=== PATIENT | female | born 1955 | race Caucasian/White ===

== ENCOUNTER 2016-07-24 11:30 | Inpatient (IN) | payer OTHER ==
[~2016-07-24] VITALS: Ht 167.6 cm; Wt 83.5 kg
--- NOTE | ~2016-07-24 | PR ---
[place], [place] PROGRESS NOTE NAME: CHERI COFFEY [facility] #: [id number] UNIT #: [id number] ROOM: 518 DOCTOR: JESSENIA PARRA MD BIRTHDATE: [birth year] DOS: 07/26/2016 SUBJECTIVE: The patient was seen in the Cardiology Department just prior to her stress test. She stated that she had no further problems overnight. She denied any chest pain. Her blood count remained stable. Cardiac biomarkers were unremarkable. PHYSICAL EXAMINATION: VITAL SIGNS: Her pulse was 79 and regular, blood pressure 138/84. NECK: Supple. She had no jugular distention. Carotids are full. LUNGS: Respirations were unlabored. Her chest was clear. HEART: Had a regular rhythm with an S4 gallop. ABDOMEN: Benign. EXTREMITIES: Showed no edema. We attempted to do an exercise myocardial perfusion study. The patient walked about a minute before she had to stop because of severe fatigue and lightheadedness. She stated that she felt hot and dizzy. She had a rapid cardio acceleration, but no evidence for bradycardia. Blood pressure was stable. We are therefore changing her stress test to a pharmacologic examination. IMPRESSION: 1. Near syncope. 2. Orthostatic hypotension. 3. Acute renal insufficiency. 4. Gastroesophageal reflux disease. PLAN: We will further her evaluation with an echocardiogram and myocardial perfusion study utilizing regadenoson. We thank the hospitalist physicians for asking our advice regarding her care. JESSENIA PARRA MD CM:PNTRANS [id number] JESSENIA PARRA MD 07/27/16 0457 interface
--- NOTE | ~2016-07-24 | ST ---
[place], [place] EXERCISE STRESS TEST REPORT [id number] UN[facility] #: [id number] ROOM: 518 DOCTOR: JESSENIA PARRA MD BIRTHDATE: [birth year] DOS: 07/26/2016 PHARMACOLOGIC STRESS TEST Study was done and is being dictated on 07/26/2016. INDICATIONS: Near syncope and precordial chest pain. PROCEDURE: The patient was started on a Nigel protocol stress test. Within a minute of walking on the treadmill, she began to feel lightheaded and hot. She had a rapid cardio accelerator response, but no diagnostic ST or T-wave changes. Because of the brevity of the study, I was concerned that it may not be an accurate reflection of her cardiovascular status and therefore, I changed the examination to a pharmacologic stress test. The patient was given a rapid infusion of regadenoson 0.4 mg intravenously followed by a saline flush. She felt some slight nausea, but had no vomiting. Her heart rate of 79 at rest aileen to 142 with the infusion. The blood pressure 138/84 fell to 118/78. No diagnostic ST or T-wave changes were seen. Forty seconds after the infusion of regadenoson, she was given radionuclide intravenously. IMPRESSION: 1. Poor exercise capacity, but without diagnostic electrocardiographic changes. 2. Well tolerated infusion of regadenoson. 3. Radionuclide injected. Please see the separate myocardial perfusion report for further details of the patient's stress test results. JESSENIA PARRA MD CM:STRESS:EXERCISE STRESS TEST REPORT 1323 [id number] JESSENIA PARRA MD
[~2016-07-24 11:30] MED LIST: ACETAMINOPHEN325 MG PO; ALBUTEROL0.09 MG/A2 IH; BUSPAR10 MG PO; CRESTOR20 MG PO; DICYCLOMINE10 MG PO; HYDROXYZINE PAM25 MG PO; LOPRESSOR25 MG PO; OMEPRAZOLE20 MG PO; VENLAFAXINE150 MG PO
[2016-07-24 11:48] VITALS: BP 119/82
[2016-07-24 12:11] VITALS: BP 116/68
[2016-07-24 12:50] LABS: BASO # 0.1 10*3/uL (0.0-0.1); BASO % 0.7 % (0.0-1.0); EOS # 0.1 10*3/uL (0.0-0.4); EOS % 1.1 % (1.0-4.0); HEMATOCRIT 39.8 % (37.0-47.0); HEMOGLOBIN 13.3 g/dl (12.0-16.0); LYMPH # 2.3 10*3/uL (1.3-4.4); LYMPH % 24.1 % (27.0-41.0); MEAN CELL VOLUME 92.1 fl (81.0-99.0); MEAN CORPUSCULAR HGB 30.8 pg (27.0-31.0); MEAN CORPUSCULAR HGB CONC 33.4 g/dl (33.0-37.0); MEAN PLATELET VOLUME 9.8 fl (9.6-12.3); MONO # 0.8 10*3/uL (0.1-1.0); MONO % 8.7 % (3.0-9.0); NEUT # 6.2 10*3/uL (2.3-7.9); NEUT % 65.2 % (47.0-73.0); PLATELET COUNT AUTOMATED 261 10*3/uL (130-400); RED BLOOD COUNT 4.32 10*6/uL (4.10-5.10); RED CELL DISTRI WIDTH 13.2 % (0-14.5); WHITE BLOOD COUNT 9.6 10*3/uL (4.8-10.8)
[2016-07-24 12:58] LABS: PROTHROMBIN TIME 10.1 SECONDS (9.0-12.4)
[2016-07-24 13:14] LABS: ALBUMIN 3.5 gm/dl (3.1-4.5); ALKALINE PHOSPHATASE 97 U/L (45-117); BILIRUBIN, DIRECT < 0.1 mg/dL (0.0-0.2); BILIRUBIN, TOTAL 0.4 mg/dl (0.2-1.0); BUN 20 mg/dl (7-24); CARBON DIOXIDE 30 mmol/L (21-32); CHLORIDE 102 mmol/L (98-107); EST GLOM FILT AFRICAN AMERICAN 48 ml/min; GLUCOSE 104 mg/dL (65-99); MAGNESIUM 1.4 mg/dL (1.5-2.1); POTASSIUM 5.2 mmol/L (3.5-5.1); SGOT/AST 17 IU/L (3-35); SGPT/ALT 30 U/L (12-78); SODIUM 138 mmol/L (136-145); TOTAL PROTEIN 6.8 gm/dL (6.4-8.2)
[2016-07-24 13:15] LABS: TROPONIN I < 0.015 ng/ml (<0.5)
[2016-07-24 14:23] LABS: BILIRUBIN NEGATIVE (NEGATIVE); BLOOD NEGATIVE (NEGATIVE); CLARITY CLEAR (CLEAR); COLOR YELLOW (YELLOW); GLUCOSE NEGATIVE (NEGATIVE); KETONE TRACE (NEGATIVE); LEUKO ESTERASE NEGATIVE (NEGATIVE); NITRITE NEGATIVE (NEGATIVE); PROTEIN NEGATIVE (NEGATIVE); SPECIFIC GRAVITY 1.015 (1.005-1.030)
[2016-07-24 14:42] LABS: URINE REFLEX COMMENT NO (NO)
[2016-07-24 15:43] VITALS: BP 135/74
[2016-07-24 15:58] VITALS: BP 78/52
[2016-07-24 16:55] VITALS: BP 120/78
[2016-07-24 18:43] LABS: CKMB 2.5 ng/ml (0.5-3.6); CPK 207 U/L (26-192)
[2016-07-24 18:44] LABS: TROPONIN I < 0.015 ng/ml (<0.5)
[2016-07-24 20:00] VITALS: BP 117/61
[2016-07-24] MEDS ORDERED: VENLAFAXINE HYD75 M2 PO ×2 (20:17)
[2016-07-25] VITALS: BP 133/74
[2016-07-25 00:25] LABS: CKMB 2.7 ng/ml (0.5-3.6); CPK 206 U/L (26-192); TROPONIN I < 0.015 ng/ml (<0.5)
[2016-07-25 06:26] LABS: BASO # 0.1 10*3/uL (0.0-0.1); EOS # 0.1 10*3/uL (0.0-0.4); EOS % 2.2 % (1.0-4.0); HEMATOCRIT 38.3 % (37.0-47.0); HEMOGLOBIN 12.8 g/dl (12.0-16.0); LYMPH # 1.9 10*3/uL (1.3-4.4); LYMPH % 31.5 % (27.0-41.0); MEAN CELL VOLUME 91.4 fl (81.0-99.0); MEAN CORPUSCULAR HGB 30.5 pg (27.0-31.0); MEAN CORPUSCULAR HGB CONC 33.4 g/dl (33.0-37.0); MEAN PLATELET VOLUME 9.7 fl (9.6-12.3); MONO # 0.5 10*3/uL (0.1-1.0); MONO % 8.8 % (3.0-9.0); NEUT # 3.3 10*3/uL (2.3-7.9); NEUT % 56.2 % (47.0-73.0); PLATELET COUNT AUTOMATED 238 10*3/uL (130-400); RED BLOOD COUNT 4.19 10*6/uL (4.10-5.10); RED CELL DISTRI WIDTH 13.2 % (0-14.5); WHITE BLOOD COUNT 5.9 10*3/uL (4.8-10.8)
[2016-07-25 06:35] LABS: CKMB 2.5 ng/ml (0.5-3.6); CPK 183 U/L (26-192)
[2016-07-25 06:38] LABS: TROPONIN I < 0.015 ng/ml (<0.5)
[2016-07-25 07:00] LABS: HEMOGLOBIN A1c 5.8 % (4.8-5.6)
[2016-07-25 07:04] LABS: ALBUMIN 3.1 gm/dl (3.1-4.5); ALKALINE PHOSPHATASE 83 U/L (45-117); BILIRUBIN, TOTAL 0.3 mg/dl (0.2-1.0); BUN 15 mg/dl (7-24); CARBON DIOXIDE 29 mmol/L (21-32); CHLORIDE 108 mmol/L (98-107); CHOLESTEROL 168 mg/dL (<200); EST GLOM FILT AFRICAN AMERICAN > 60 ml/min; GLUCOSE 91 mg/dL (65-99); HDL CHOLESTEROL 51 mg/dl (40-60); LDL CHOLESTEROL 98 mg/dL (9-159); MAGNESIUM 1.9 mg/dL (1.5-2.1); PHOSPHOROUS 2.8 mg/dL (2.5-4.9); SGOT/AST 17 IU/L (3-35); SGPT/ALT 25 U/L (12-78); SODIUM 142 mmol/L (136-145); TRIGLYCERIDES 93 mg/dl (<150); VLDL CHOLESTEROL 19 mg/dL (6-40)
[2016-07-25 07:18] LABS: INTERNATIONAL NORM RATIO 0.9 (2.0-3.5); PROTHROMBIN TIME 9.9 SECONDS (9.0-12.4)
[2016-07-25 07:45] LABS: FOLIC ACID 11.31 ng/mL (>5.38)
[2016-07-25 08:00] VITALS: BP 140/78
[2016-07-25 12:00] VITALS: BP 122/77
[2016-07-25 16:00] VITALS: BP 128/69
[2016-07-25 20:00] VITALS: BP 113/75
[2016-07-26] VITALS: BP 146/75
[2016-07-26 08:00] VITALS: BP 132/80
[2016-07-26 08:01] LABS: BUN 12 mg/dl (7-24); CARBON DIOXIDE 28 mmol/L (21-32); CHLORIDE 106 mmol/L (98-107); EST GLOM FILT AFRICAN AMERICAN > 60 ml/min; GLUCOSE 99 mg/dL (65-99); POTASSIUM 3.6 mmol/L (3.5-5.1); SODIUM 142 mmol/L (136-145)
[2016-07-26 12:00] VITALS: BP 134/80
[2016-07-26 16:00] VITALS: BP 130/74
[2016-09-18] MEDS ORDERED: PRILOSEC20 M1 PO (01:32)
== END 2016-07-26 19:27 | disposition home or self-care (01) | DRG 312 ==
LOC: ED 11:30 → 5E 15:36 → EDHOLD 15:36 → 5E 15:39
PROVIDERS: Emergency Medicine; Hospitalist; Internal Medicine
DX: I95.1 Orthostatic hypotension (principal); N17.0 Acute kidney failure with tubular necrosis; E83.42 Hypomagnesemia; I10 Essential (primary) hypertension; E87.5 Hyperkalemia; F17.210 Nicotine dependence, cigarettes, uncomplicated; K21.9 Gastro-esophageal reflux disease without esophagitis; K58.1 Irritable bowel syndrome with constipation; F41.9 Anxiety disorder, unspecified; F32.9 Major depressive disorder, single episode, unspecified; Z71.6 Tobacco abuse counseling; Z88.8 Allergy status to other drugs, medicaments and biological substances; Z79.899 Other long term (current) drug therapy; Z90.710 Acquired absence of both cervix and uterus; Z82.49 Family history of ischemic heart disease and other diseases of the circulatory system; Z82.3 Family history of stroke

== ENCOUNTER 2016-09-10 12:46 | Inpatient (IN) | payer OTHER ==
[2016-09-10] VITALS (8 sets, daily range): BP systolic 105–148; BP diastolic 61–100
[~2016-09-10] VITALS: Ht 167.6 cm; Wt 86.6 kg
--- NOTE | ~2016-09-10 | WRIGHTHP ---
[place], [place] PATIENT HISTORY AND PHYSICAL EXAM NAME: CHERI COFFEY [facility] #: [id number] UNIT #: [id number] ROOM: 529 DOCTOR: SPENCER BUTTERFIELD DO BIRTHDATE: [birth year] DOS: 09/10/2016 PRIMARY CARE PHYSICIAN: Kitty Oleary NP HISTORY OF PRESENT ILLNESS: The patient was seen and evaluated with the resident on 09/10/2016. Please see the resident's note for further details. ASSESSMENT: 1. Acute chronic obstructive pulmonary disease exacerbation. 2. Acute gastroenteritis. 3. Dizziness. This has been a chronic issue and is unchanged. 4. Hypertension. 5. Hyperlipidemia. 6. Gastroesophageal reflux disease. 7. Tobacco abuse. 8. History of irritable bowel syndrome. 9. Anxiety. 10. Depression. 11. History of cervical cancer. 12. Negative cardiac stress test in 07/2016. 13. Echocardiogram in 07/2016 measured a normal ejection fraction. PLAN: Continue supportive care, continue IV fluids for hydration. Steroids and aerosol treatments will be ordered for the COPD. SPENCER BUTTERFIELD DO CM:HISPHYS:PATIENT HISTORY AND PHYSICAL EXAMINATION 1724 1800 SPENCER BUTTERFIELD DO 09/10/16 1800 interface
[~2016-09-10 12:46] MED LIST changes: +VENLAFAXINE HYD75 M2 PO
[2016-09-10] MEDS ORDERED: NEURONTIN300 MG PO (13:07)
[2016-09-10] MEDS ORDERED: LISINOPRIL10 M1 PO (13:07)
[2016-09-10] MEDS ORDERED: ASPIRIN ADULT L81 M1 PO (13:07)
[2016-09-10] MEDS ORDERED: HALDOL5 MG PO (13:08)
[2016-09-10] MEDS ORDERED: LIPITOR80 MG PO (13:08)
[2016-09-10 13:18] LABS: BASO # 0.1 10*3/uL (0.0-0.1); BASO % 0.8 % (0.0-1.0); EOS # 0.1 10*3/uL (0.0-0.4); EOS % 1.1 % (1.0-4.0); HEMATOCRIT 38.2 % (37.0-47.0); HEMOGLOBIN 12.6 g/dl (12.0-16.0); LYMPH # 1.7 10*3/uL (1.3-4.4); LYMPH % 15.8 % (27.0-41.0); MEAN CELL VOLUME 92.7 fl (81.0-99.0); MEAN CORPUSCULAR HGB 30.6 pg (27.0-31.0); MEAN PLATELET VOLUME 9.3 fl (9.6-12.3); MONO # 0.9 10*3/uL (0.1-1.0); MONO % 8.4 % (3.0-9.0); NEUT # 7.9 10*3/uL (2.3-7.9); NEUT % 73.5 % (47.0-73.0); PLATELET COUNT AUTOMATED 357 10*3/uL (130-400); RED BLOOD COUNT 4.12 10*6/uL (4.10-5.10); RED CELL DISTRI WIDTH 13.9 % (0-14.5); WHITE BLOOD COUNT 10.8 10*3/uL (4.8-10.8)
[2016-09-10 13:31] LABS: ALBUMIN 3.4 gm/dl (3.1-4.5); ALKALINE PHOSPHATASE 72 U/L (45-117); BILIRUBIN, TOTAL 0.2 mg/dl (0.2-1.0); BUN 6 mg/dl (7-24); CARBON DIOXIDE 26 mmol/L (21-32); CHLORIDE 105 mmol/L (98-107); EST GLOM FILT AFRICAN AMERICAN > 60 ml/min; GLUCOSE 104 mg/dL (65-99); POTASSIUM 4.2 mmol/L (3.5-5.1); SGOT/AST 22 IU/L (3-35); SGPT/ALT 42 U/L (12-78); SODIUM 141 mmol/L (136-145); TOTAL PROTEIN 6.9 gm/dL (6.4-8.2)
[2016-09-10 15:43] LABS: BILIRUBIN NEGATIVE (NEGATIVE); BLOOD NEGATIVE (NEGATIVE); CLARITY CLEAR (CLEAR); COLOR YELLOW (YELLOW); GLUCOSE NEGATIVE (NEGATIVE); KETONE NEGATIVE (NEGATIVE); LEUKO ESTERASE NEGATIVE (NEGATIVE); NITRITE NEGATIVE (NEGATIVE); PROTEIN NEGATIVE (NEGATIVE); SPECIFIC GRAVITY <= 1.005 (1.005-1.030); UROBILINOGEN 0.2 E.U./dl (0.2-1.0)
[2016-09-10 15:57] LABS: RBC 0-2 rbc/hpf (0-2); URINE REFLEX COMMENT NO (NO); WBC 0-2 wbc/hpf (0-5)
[2016-09-10] MEDS ORDERED: HYDR12.5C PO (16:25)
[2016-09-10] MEDS ORDERED: LAMICTAL25 MG PO (16:29)
[2016-09-10] MEDS ORDERED: Nizoral 2%15 GM T (16:30)
[2016-09-10 18:29] LABS: CPK 200 U/L (26-192)
[2016-09-10 18:37] LABS: CKMB 6.6 ng/ml (0.5-3.6); TROPONIN I < 0.015 ng/ml (<0.045)
[2016-09-11] VITALS: BP 124/72
[2016-09-11 00:41] LABS: CPK 197 U/L (26-192)
[2016-09-11 00:43] LABS: CKMB 6.1 ng/ml (0.5-3.6); TROPONIN I < 0.015 ng/ml (<0.045)
[2016-09-11 06:04] LABS: BASO % 0.3 % (0.0-1.0); HEMATOCRIT 39.2 % (37.0-47.0); HEMOGLOBIN 12.6 g/dl (12.0-16.0); LYMPH # 0.8 10*3/uL (1.3-4.4); MEAN CORPUSCULAR HGB 30.2 pg (27.0-31.0); MEAN CORPUSCULAR HGB CONC 32.1 g/dl (33.0-37.0); MEAN PLATELET VOLUME 9.4 fl (9.6-12.3); MONO # 0.2 10*3/uL (0.1-1.0); MONO % 2.1 % (3.0-9.0); NEUT # 6.7 10*3/uL (2.3-7.9); NEUT % 87.2 % (47.0-73.0); PLATELET COUNT AUTOMATED 377 10*3/uL (130-400); RED BLOOD COUNT 4.17 10*6/uL (4.10-5.10); RED CELL DISTRI WIDTH 14.2 % (0-14.5); WHITE BLOOD COUNT 7.7 10*3/uL (4.8-10.8)
[2016-09-11 06:07] LABS: CPK 180 U/L (26-192)
[2016-09-11 06:17] LABS: CKMB 5.8 ng/ml (0.5-3.6); TROPONIN I < 0.015 ng/ml (<0.045)
[2016-09-11 06:22] LABS: ALBUMIN 3.2 gm/dl (3.1-4.5); ALKALINE PHOSPHATASE 69 U/L (45-117); BILIRUBIN, TOTAL 0.3 mg/dl (0.2-1.0); BUN 8 mg/dl (7-24); CARBON DIOXIDE 25 mmol/L (21-32); CHLORIDE 103 mmol/L (98-107); CHOLESTEROL 198 mg/dL (<200); EST GLOM FILT AFRICAN AMERICAN > 60 ml/min; FREE T4 0.74 ng/dl (0.76-1.46); GLUCOSE 138 mg/dL (65-99); HDL CHOLESTEROL 72 mg/dl (40-60); LDL CHOLESTEROL 114 mg/dL (9-159); MAGNESIUM 1.4 mg/dL (1.5-2.1); SGOT/AST 17 IU/L (3-35); SGPT/ALT 39 U/L (12-78); SODIUM 140 mmol/L (136-145); TOTAL PROTEIN 6.7 gm/dL (6.4-8.2); TRIGLYCERIDES 60 mg/dl (<150); VLDL CHOLESTEROL 12 mg/dL (6-40)
[2016-09-11 06:23] LABS: PROTHROMBIN TIME 10.6 SECONDS (9.0-12.4)
[2016-09-11 07:11] LABS: FOLIC ACID 10.26 ng/mL (>5.38); VITAMIN D, 25-HYDROXY 20.6 ng/mL (30-100)
[2016-09-11 08:00] VITALS: BP 124/77
[2016-09-11 08:04] LABS: HEMOGLOBIN A1c 5.8 % (4.8-5.6)
[2016-09-11] MEDS ORDERED: ZITHROMAX250 MG PO (11:36)
[2016-09-11] MEDS ORDERED: PREDNISONE10 MG PO (11:36)
[2016-09-11] MEDS ORDERED: ZOFRAN ODT4 MG SL (11:39)
[2016-09-11 12:00] VITALS: BP 103/65
[2016-09-18] MEDS ORDERED: PRILOSEC20 M1 PO (01:32)
== END 2016-09-11 12:30 | disposition home or self-care (01) | DRG 391 ==
LOC: ED 12:46 → EDHOLD 15:32 → 5E 15:32
PROVIDERS: Hospitalist; Registered Nurse
DX: K52.9 Noninfective gastroenteritis and colitis, unspecified (principal); J96.00 Acute respiratory failure, unspecified whether with hypoxia or hypercapnia; J44.1 Chronic obstructive pulmonary disease with (acute) exacerbation; E44.0 Moderate protein-calorie malnutrition; I10 Essential (primary) hypertension; E78.5 Hyperlipidemia, unspecified; F32.9 Major depressive disorder, single episode, unspecified; K21.9 Gastro-esophageal reflux disease without esophagitis; R29.6 Repeated falls; F41.9 Anxiety disorder, unspecified; F17.210 Nicotine dependence, cigarettes, uncomplicated; Z85.41 Personal history of malignant neoplasm of cervix uteri; Z90.710 Acquired absence of both cervix and uterus; Z82.3 Family history of stroke; Z82.49 Family history of ischemic heart disease and other diseases of the circulatory system; Z88.6 Allergy status to analgesic agent; Z91.018 Allergy to other foods; Z79.82 Long term (current) use of aspirin; Z79.899 Other long term (current) drug therapy; Z68.30 Body mass index [BMI] 30.0-30.9, adult

== ENCOUNTER 2016-12-20 19:15 | Inpatient (IN) | payer OTHER ==
[~2016-12-20] VITALS: Ht 172.7 cm; Wt 87.5 kg
--- NOTE | ~2016-12-20 | CON ---
[place], [place] REPORT OF CONSULTATION NAME: CHERI COFFEY UNIT #: [id number] ROOM: [facility] DOCTOR: LANA HALE MD BIRTHDATE: [birth year] DOS: REQUESTING PHYSICIAN: Dr. Dewitt. REASON FOR CONSULTATION: Acute yne-XU-sszjlgb elevation myocardial infarction. ASSESSMENT: 1. Current presentation with severe chest pain, "elephant sitting on my chest." 2. Elevated troponin with normal CPK. 3. Abnormal baseline EKG consistent with right bundle-branch block tachycardia. 4. Hypertension. 5. Hyperlipidemia. 6. Obesity with high probability of obstructive sleep apnea. 7. Active tobacco and long history of tobacco abuse. PLAN: 1. Continue to cycle cardiac enzymes. 2. Check D-dimer. 3. Stat echo. 4. Continue heparin. 5. Lopressor 25 mg 1 tablet p.o. b.i.d. 6. Enteric-coated aspirin 81 mg. 7. Cardiac catheterization for continued complaint or should workup for PE if negative. 8. Consider sleep study, which can be done as an outpatient. HISTORY OF PRESENT ILLNESS: The patient is a pleasant 61-year-old female unknown to our group, was referred by Dr. Dewitt for evaluation of complaint of chest pain that is quite typical, heaviness, tightness, occurred suddenly while the patient sleeping 3 days ago. The pain felt severe initially, felt as an elephant sitting on her chest. The patient got off the bed and walked to the door and then she fell down on the floor. No syncope. The patient, by then she was very short of breath with racing heartbeats that surprisingly have continued throughout the day while the patient stayed in bed. Any minimal activity will provoke the shortness of breath. By then, the pain is quite dull, aching, epigastric and almost 2/10. Initial presentation was almost 10/10. This lingered on for 2 days prior to the patient presented to the Emergency Room where cardiac enzymes were positive with troponin, but normal CPK, but elevated MB fraction. Electrocardiogram is showing sinus tachycardia with right bundle-branch block. Prior to this presentation, the patient had been doing relatively well. Denies any such complaint before. Never had any sharp pressure, heaviness, tightness, pressure, no jaw pain, no left arm pain, no back pain. Never had any symptomatic palpitation or any associated dizziness, lightheadedness, or any syncope. The patient is relatively active. No reported PND, orthopnea, or pedal edema. No fever, no chills, no night sweats. Maintained good appetite, no weight loss. PAST MEDICAL HISTORY: As detailed in my assessment. [place], [place] REPORT OF CONSULTATION NAME: CHERI COFFEY UNIT #: [id number] ROOM: [facility] DOCTOR: LANA HALE MD BIRTHDATE: [birth year] SOCIAL HISTORY: The patient continued to smoke about 1 pack a day, has been doing this since she was 14 years old. No alcohol or illicit drug abuse. FAMILY HISTORY: The patient's mother at age 83 of a stroke, her father at age 70 also with a stroke. She has three brothers, one sister with no reported heart problems. CURRENT MEDICATIONS: Vitamin D, magnesium, calcium, Protonix, heparin, Restoril, Zofran, Dulcolax, Zosyn, DuoNeb and Solu-Medrol. ALLERGIES: The patient is allergic to VICODIN and ALMONDS. REVIEW OF SYSTEMS: Currently, the patient denies any headache, diplopia or blurry vision. No fever, no chills, no night sweats. No abdominal pain, no bright red blood per rectum or tarry stools. The patient admits to joint pain, but no muscular pain. No anxiety or any depression. No polyuria, no polydipsia, no skin rash. Review of all other systems has been negative. PHYSICAL EXAMINATION: GENERAL: The patient is alert, oriented x 3, quite pleasant. The patient sitting up in bed. She is in moderate distress for any minimal activity that cause shortness of breath. VITAL SIGNS: Blood pressure 110/84, heart rate 98, respiratory rate of 20, temperature 97.6. HEENT: Extraocular muscles intact. Pupils equal, round, reactive to light. Conjunctivae: No pallor. Throat: No petechiae. NECK: Good upstroke. Unable to appreciate any bruit. No JVD, no lymphadenopathy, no thyromegaly. HEART: S1, S2 with holosystolic murmur in left upper sternal border, loud P2. No rub, no retrosternal heave. CHEST AND BACK: No deformities. LUNGS: Decreased air movement, but no jacinto wheezing or rales. ABDOMEN: Obese, soft, nontender, present bowel sounds, no masses, no bruits, no epigastric tenderness. LOWER EXTREMITIES: There is no edema, with faint distal pulses. NEUROLOGIC: Grossly nonfocal. SKIN: No significant rash. LABORATORY DATA: White count 11.5, hemoglobin 11.4, there is a left shift. CPK is 119, CK-MB is 9.9, 9.6, 4.9. Troponin 0.149, 0.173. Hemoglobin A1c is 6.1. Creatinine 1.3, GFR is 40%. [place], [place] REPORT OF CONSULTATION NAME: CHERI COFFEY UNIT #: [id number] ROOM: [facility] DOCTOR: LANA HALE MD BIRTHDATE: [birth year] LANA HALE MD CM:CONSTR:REPORT OF CONSULTATION 1323 12/22/16 0322 interface
[2016-12-20 19:15] VITALS: BP 74/46
[~2016-12-20 19:15] MED LIST changes: +ASPIRIN ADULT L81 M1 PO; +HALDOL5 MG PO; +HYDR12.5C PO; +LAMICTAL25 MG PO; +LIPITOR80 MG PO; +LISINOPRIL10 M1 PO; +NEURONTIN300 MG PO; +Nizoral 2%15 GM T; +PREDNISONE10 MG PO; +PRILOSEC20 M1 PO; +ZITHROMAX250 MG PO; +ZOFRAN ODT4 MG SL
[2016-12-20 19:36] LABS: BASO # 0.1 10*3/uL (0.0-0.1); BASO % 0.4 % (0.0-1.0); EOS % 0.1 % (1.0-4.0); HEMATOCRIT 38.1 % (37.0-47.0); HEMOGLOBIN 12.5 g/dl (12.0-16.0); IG # 0.1 10*3/uL (0.0-0.1); LYMPH # 1.6 10*3/uL (1.3-4.4); LYMPH % 11.5 % (27.0-41.0); MEAN CELL VOLUME 90.5 fl (81.0-99.0); MEAN CORPUSCULAR HGB 29.7 pg (27.0-31.0); MEAN CORPUSCULAR HGB CONC 32.8 g/dl (33.0-37.0); MEAN PLATELET VOLUME 10.2 fl (9.6-12.3); NEUT # 11.2 10*3/uL (2.3-7.9); NEUT % 80.4 % (47.0-73.0); PLATELET COUNT AUTOMATED 231 10*3/uL (130-400); RED BLOOD COUNT 4.21 10*6/uL (4.10-5.10); RED CELL DISTRI WIDTH 14.1 % (0-14.5)
[2016-12-20 19:54] LABS: ALBUMIN 3.2 gm/dl (3.1-4.5); BILIRUBIN, TOTAL 0.3 mg/dl (0.2-1.0); MAGNESIUM 1.6 mg/dL (1.5-2.1); POTASSIUM 4.4 mmol/L (3.5-5.1); TOTAL PROTEIN 6.7 gm/dL (6.4-8.2)
[2016-12-20 19:55] VITALS: BP 82/54
[2016-12-20 20:20] LABS: TROPONIN I 0.173 ng/ml (<0.045)
[2016-12-20] MEDS ORDERED: MAGNESIUM400 M1 PO (20:22)
[2016-12-20] MEDS ORDERED: Motrin,Rufen800 MG PO (20:22)
[2016-12-20] MEDS ORDERED: AMITRIPTYLINE50 MG PO (20:23)
[2016-12-20] MEDS ORDERED: ASPIRIN81 M1 PO (20:23)
[2016-12-20 20:31] VITALS: BP 92/58
[2016-12-20 21:00] VITALS: BP 88/76
[2016-12-20 22:15] VITALS: BP 92/58
[2016-12-20 22:24] LABS: LA>2 REFLEX 2 HR DRAW NOW
[2016-12-21 00:26] LABS: CKMB 4.9 ng/ml (0.5-3.6)
[2016-12-21 04:00] VITALS: BP 129/79
[2016-12-21 06:18] LABS: BASO % 0.2 % (0.0-1.0); HEMATOCRIT 34.3 % (37.0-47.0); HEMOGLOBIN 11.4 g/dl (12.0-16.0); IG # 0.1 10*3/uL (0.0-0.1); LYMPH % 8.7 % (27.0-41.0); MEAN CORPUSCULAR HGB 30.6 pg (27.0-31.0); MEAN CORPUSCULAR HGB CONC 33.2 g/dl (33.0-37.0); MEAN PLATELET VOLUME 10.1 fl (9.6-12.3); MONO # 0.1 10*3/uL (0.1-1.0); MONO % 1.1 % (3.0-9.0); NEUT # 10.3 10*3/uL (2.3-7.9); NEUT % 89.6 % (47.0-73.0); PLATELET COUNT AUTOMATED 176 10*3/uL (130-400); RED BLOOD COUNT 3.73 10*6/uL (4.10-5.10); RED CELL DISTRI WIDTH 14.1 % (0-14.5); WHITE BLOOD COUNT 11.5 10*3/uL (4.8-10.8)
[2016-12-21 06:37] LABS: HEMOGLOBIN A1c 6.1 % (4.8-5.6)
[2016-12-21 06:42] LABS: CKMB 9.6 ng/ml (0.5-3.6)
[2016-12-21 06:44] LABS: MAGNESIUM 1.4 mg/dL (1.5-2.1); PHOSPHOROUS 2.9 mg/dL (2.5-4.9); POTASSIUM 4.3 mmol/L (3.5-5.1)
[2016-12-21 07:08] LABS: PROTHROMBIN TIME 11.1 SECONDS (9.0-12.4)
[2016-12-21 08:00] VITALS: BP 110/82
[2016-12-21 12:00] VITALS: BP 110/84
[2016-12-21 12:32] LABS: CKMB 9.9 ng/ml (0.5-3.6)
[2016-12-21 16:00] VITALS: BP 116/81
[2016-12-21 16:18] LABS: ABG BASE EXCESS -7.4 mmol/L (-2.0-2.0); ABG CO2 CONTENT 16.1 mmol/L (23-27); ABG HCO3 15.4 mmol/l (22-26); ABG TEMPERATURE 98.3 F (98.0-99.0); ARTERIAL BLOOD GAS PH 7.422 (7.35-7.45); ARTERIAL BLOOD GAS PO2 75.6 mmHg (80-90)
[2016-12-21 19:15] VITALS: BP 132/86
== END 2016-12-21 19:50 | disposition short-term general hospital (02) | DRG 871 ==
LOC: ED 19:15 → ICCU 21:25 → EDHOLD 21:25 → ICCU 21:29
PROVIDERS: Emergency Medicine Emergency Medical Services; Family Medicine; Internal Medicine Cardiovascular Disease; Student in an Organized Health Care Education/Training Program
DX: A41.9 Sepsis, unspecified organism (principal); I21.4 Non-ST elevation (NSTEMI) myocardial infarction; N17.0 Acute kidney failure with tubular necrosis; J96.00 Acute respiratory failure, unspecified whether with hypoxia or hypercapnia; E87.2 Acidosis; I95.9 Hypotension, unspecified; E44.0 Moderate protein-calorie malnutrition; J44.1 Chronic obstructive pulmonary disease with (acute) exacerbation; R65.20 Severe sepsis without septic shock; E87.8 Other disorders of electrolyte and fluid balance, not elsewhere classified; E86.0 Dehydration; K58.9 Irritable bowel syndrome, unspecified; I10 Essential (primary) hypertension; F32.9 Major depressive disorder, single episode, unspecified; E83.51 Hypocalcemia; E83.42 Hypomagnesemia; E55.9 Vitamin D deficiency, unspecified; E66.9 Obesity, unspecified; E78.00 Pure hypercholesterolemia, unspecified; K21.9 Gastro-esophageal reflux disease without esophagitis; F41.9 Anxiety disorder, unspecified; F17.210 Nicotine dependence, cigarettes, uncomplicated; E78.5 Hyperlipidemia, unspecified; K44.9 Diaphragmatic hernia without obstruction or gangrene; Z90.710 Acquired absence of both cervix and uterus; Z82.3 Family history of stroke; Z82.49 Family history of ischemic heart disease and other diseases of the circulatory system; Z85.9 Personal history of malignant neoplasm, unspecified; Z88.6 Allergy status to analgesic agent; Z91.018 Allergy to other foods; Z88.8 Allergy status to other drugs, medicaments and biological substances; Z79.82 Long term (current) use of aspirin; Z79.1 Long term (current) use of non-steroidal anti-inflammatories (NSAID); Z79.899 Other long term (current) drug therapy; Z71.6 Tobacco abuse counseling; Z68.29 Body mass index [BMI] 29.0-29.9, adult

== ENCOUNTER 2016-12-25 09:37 | Emergency (ER) | payer OTHER ==
[~2016-12-25] VITALS: Ht 170.1 cm; Wt 84.4 kg
[~2016-12-25 09:37] MED LIST changes: +AMITRIPTYLINE50 MG PO; +ASPIRIN81 M1 PO; +MAGNESIUM400 M1 PO; +Motrin,Rufen800 MG PO
[2016-12-25] MEDS ORDERED: Lovenox80 MG/0.8 SC (09:41)
[2016-12-25] MEDS ORDERED: Coumadin5 MG PO (09:41)
[2016-12-25 10:15] LABS: INTERNATIONAL NORM RATIO 1.3 (2.0-3.5); PROTHROMBIN TIME 14.4 SECONDS (9.0-12.4)
== END 2016-12-25 11:16 | disposition home or self-care (01) ==
LOC: ED 09:37
PROVIDERS: Emergency Medicine
DX: R79.89 Other specified abnormal findings of blood chemistry (principal); F17.200 Nicotine dependence, unspecified, uncomplicated; I10 Essential (primary) hypertension; E78.5 Hyperlipidemia, unspecified; K58.9 Irritable bowel syndrome, unspecified; K21.9 Gastro-esophageal reflux disease without esophagitis; J44.9 Chronic obstructive pulmonary disease, unspecified; Z79.01 Long term (current) use of anticoagulants; Z79.82 Long term (current) use of aspirin; Z79.899 Other long term (current) drug therapy; Z91.018 Allergy to other foods; Z88.8 Allergy status to other drugs, medicaments and biological substances

== ENCOUNTER 2017-03-26 17:16 | Emergency (ER) | payer OTHER ==
[~2017-03-26] VITALS: Wt 82.1 kg
[~2017-03-26 17:16] MED LIST changes: +Coumadin5 MG PO; +Lovenox80 MG/0.8 SC
[2017-03-26 18:02] LABS: BASO # 0.1 10*3/uL (0.0-0.1); BASO % 0.7 % (0.0-1.0); EOS # 0.2 10*3/uL (0.0-0.4); EOS % 1.9 % (1.0-4.0); HEMATOCRIT 36.8 % (37.0-47.0); HEMOGLOBIN 11.9 g/dl (12.0-16.0); LYMPH # 2.5 10*3/uL (1.3-4.4); LYMPH % 29.2 % (27.0-41.0); MEAN CELL VOLUME 86.6 fl (81.0-99.0); MEAN CORPUSCULAR HGB CONC 32.3 g/dl (33.0-37.0); MEAN PLATELET VOLUME 9.5 fl (9.6-12.3); MONO # 0.8 10*3/uL (0.1-1.0); MONO % 8.7 % (3.0-9.0); NEUT # 5.1 10*3/uL (2.3-7.9); NEUT % 59.3 % (47.0-73.0); PLATELET COUNT AUTOMATED 348 10*3/uL (130-400); RED BLOOD COUNT 4.25 10*6/uL (4.10-5.10); WHITE BLOOD COUNT 8.6 10*3/uL (4.8-10.8)
[2017-03-26 18:11] LABS: ACT PARTIAL THROMBO TIME 22.9 SECONDS (20.8-31.5)
[2017-03-26 18:17] LABS: ALBUMIN 3.4 gm/dl (3.1-4.5); ALKALINE PHOSPHATASE 103 U/L (45-117); BUN 14 mg/dl (7-24); CHLORIDE 101 mmol/L (98-107); CKMB 1.5 ng/ml (0.5-3.6); CPK 83 U/L (26-192); CREATININE 1.12 mg/dL (0.55-1.02); LIPASE 100 U/L (73-393); MAGNESIUM 1.6 mg/dL (1.5-2.1); POTASSIUM 4.2 mmol/L (3.5-5.1); SGOT/AST 29 IU/L (3-35); SGPT/ALT 51 U/L (12-78); SODIUM 137 mmol/L (136-145); TOTAL PROTEIN 6.9 gm/dL (6.4-8.2)
[2017-03-26 18:24] LABS: TROPONIN I < 0.015 ng/ml (<0.045)
[2017-03-26] MEDS ORDERED: PEPCID20 MG PO (22:02)
== END 2017-03-26 22:08 | disposition home or self-care (01) ==
LOC: ED 17:16
PROVIDERS: Emergency Medicine
DX: K29.70 Gastritis, unspecified, without bleeding (principal); K44.9 Diaphragmatic hernia without obstruction or gangrene; I10 Essential (primary) hypertension; J44.9 Chronic obstructive pulmonary disease, unspecified; K21.9 Gastro-esophageal reflux disease without esophagitis; E78.5 Hyperlipidemia, unspecified; F17.200 Nicotine dependence, unspecified, uncomplicated; Z88.6 Allergy status to analgesic agent; Z91.018 Allergy to other foods; Z79.82 Long term (current) use of aspirin; Z79.02 Long term (current) use of antithrombotics/antiplatelets; Z79.899 Other long term (current) drug therapy

== ENCOUNTER → 2017-06-07 | Outpatient (CLI) | payer OTHER ==
[~2017-06-07] MED LIST changes: +ELIQUIS5 M1 PO; +PEPCID20 MG PO
== END | disposition home or self-care (01) ==
LOC: MAMMO 07:37
DX: Z12.31 Encounter for screening mammogram for malignant neoplasm of breast (principal)

== ENCOUNTER → 2017-06-08 | Day surgery (SDC) | payer OTHER ==
[~2017-06-08] VITALS: Ht 167.6 cm; Wt 81.6 kg
--- NOTE | ~2017-06-08 | O ---
[place], [place] OPERATIVE NOTE NAME: CHERI COFFEY UNIT #: [id number] ROOM: DOCTOR: LIAT ANDINO MD BIRTHDATE: [birth year] DOS: 06/08/2017 HISTORY: A 62-year-old with epigastric abdominal pain, dyspepsia, dysphagia. ALLERGIES: UNKNOWN AND VICODIN. FAMILY HISTORY: Noncontributory. PAST SURGICAL HISTORY: Cervical CA, hysterectomy and bladder surgery repair. PAST MEDICAL HISTORY: Hypertension, hypercholesterolemia, hypothyroidism, pulmonary embolism, history of being on Eliquis for the past 6 months. SOCIAL HISTORY: Stopped smoking 2 months ago, nonalcohol consumer on fish oil. PROCEDURE: Today's procedure part of investigation is panendoscopy plus biopsy. PREMEDICATION: Versed and Diprivan. SCOPE: Olympus forward-viewing gastroscope Q10 video. REPORT: After putting the patient in left lateral position and application of lubricant to the scope, the scope was introduced. Thereafter, under direct visualization, advanced through the length of esophagus without difficulty. Large hiatal hernia was noticed. Upon entry into gastric pouch, gastritis of mild degree seen. Duodenal bulb, second and third part within normal limits. Antral biopsy was obtained for H. pylori. The patient extubated, tolerated the procedure well. IMPRESSION: Large hiatal hernia with reflux, gastritis, status post biopsy. PLAN AND DISCUSSION: The patient on omeprazole and ranitidine 20 mg b.i.d. I trust that she is comfortable with also in addition, we will recommend Extra Strength, Gaviscon 1 b.i.d., particularly 1 at bedtime, elevation of the head of the bed 16 inch all time, avoiding solid food consumption 5 hours prior to retiring. Follow up routinely with you in office and with us p.r.n. If any definitive management regarding this large hiatal hernia as needed, would be a hiatal hernia repair with Jovany wrap fundoplication. Thank you again for your kind referral. [place], [place] OPERATIVE NOTE NAME: CHERI COFFEY UNIT #: [id number] ROOM: DOCTOR: LIAT ANDINO MD BIRTHDATE: [birth year] LIAT ANDINO MD CM:GURMEET:OPERATIVE NOTE 1103 1346 LIAT ANDINO MD 06/08/17 1347 interface
[2017-06-08 10:15] VITALS: BP 133/81
[2017-06-08 10:55] VITALS: BP 93/59
[2017-06-08 11:10] VITALS: BP 107/65
[2017-06-08 11:25] VITALS: BP 118/70
== END | disposition home or self-care (01) ==
LOC: SDC 06-05 09:30
DX: K29.50 Unspecified chronic gastritis without bleeding (principal); K44.9 Diaphragmatic hernia without obstruction or gangrene; I10 Essential (primary) hypertension; K21.9 Gastro-esophageal reflux disease without esophagitis; Z90.710 Acquired absence of both cervix and uterus; Z87.891 Personal history of nicotine dependence; J44.9 Chronic obstructive pulmonary disease, unspecified; F32.9 Major depressive disorder, single episode, unspecified; Z88.8 Allergy status to other drugs, medicaments and biological substances; E07.89 Other specified disorders of thyroid; E78.5 Hyperlipidemia, unspecified; Z86.711 Personal history of pulmonary embolism; Z85.41 Personal history of malignant neoplasm of cervix uteri; Z79.899 Other long term (current) drug therapy

== ENCOUNTER → 2017-12-05 | Outpatient (CLI) | payer MEDICARE, OTHER | END | disposition home or self-care (01) | LOC: RESCLI 03:10 | DX: K44.9 Diaphragmatic hernia without obstruction or gangrene (principal); I25.2 Old myocardial infarction; E55.9 Vitamin D deficiency, unspecified; K21.9 Gastro-esophageal reflux disease without esophagitis; K58.9 Irritable bowel syndrome, unspecified; F41.9 Anxiety disorder, unspecified; F32.9 Major depressive disorder, single episode, unspecified; I10 Essential (primary) hypertension; J44.9 Chronic obstructive pulmonary disease, unspecified; E78.5 Hyperlipidemia, unspecified; E03.9 Hypothyroidism, unspecified; F17.210 Nicotine dependence, cigarettes, uncomplicated; Z85.41 Personal history of malignant neoplasm of cervix uteri; Z86.711 Personal history of pulmonary embolism; Z71.6 Tobacco abuse counseling ==

== ENCOUNTER → 2018-01-01 | Outpatient (CLI) | payer OTHER | END | disposition home or self-care (01) | LOC: RESCLI 02:33 | DX: I10 Essential (primary) hypertension (principal); E78.5 Hyperlipidemia, unspecified; E03.9 Hypothyroidism, unspecified; K21.9 Gastro-esophageal reflux disease without esophagitis; I25.2 Old myocardial infarction; J44.9 Chronic obstructive pulmonary disease, unspecified; F32.9 Major depressive disorder, single episode, unspecified; F41.9 Anxiety disorder, unspecified; K58.9 Irritable bowel syndrome, unspecified; K44.9 Diaphragmatic hernia without obstruction or gangrene; E55.9 Vitamin D deficiency, unspecified; F17.210 Nicotine dependence, cigarettes, uncomplicated; Z71.6 Tobacco abuse counseling; Z86.711 Personal history of pulmonary embolism; Z85.41 Personal history of malignant neoplasm of cervix uteri; Z88.8 Allergy status to other drugs, medicaments and biological substances ==

== ENCOUNTER → 2018-01-10 | Outpatient (CLI) | payer OTHER ==
[2018-01-10 09:29] LABS: BASO % 0.6 % (0.0-1.0); EOS % 0.5 % (1.0-4.0); HEMOGLOBIN 12.2 g/dl (12.0-16.0); LYMPH # 1.8 10*3/uL (1.3-4.4); LYMPH % 28.6 % (27.0-41.0); MEAN CELL VOLUME 85.2 fl (81.0-99.0); MEAN CORPUSCULAR HGB 26.6 pg (27.0-31.0); MEAN CORPUSCULAR HGB CONC 31.3 g/dl (33.0-37.0); MONO # 0.5 10*3/uL (0.1-1.0); MONO % 7.5 % (3.0-9.0); NEUT # 3.9 10*3/uL (2.3-7.9); NEUT % 62.6 % (47.0-73.0); PLATELET COUNT AUTOMATED 272 10*3/uL (130-400); RED BLOOD COUNT 4.58 10*6/uL (4.10-5.10); RED CELL DISTRI WIDTH 15.8 % (0-14.5); WHITE BLOOD COUNT 6.3 10*3/uL (4.8-10.8)
[2018-01-10 09:33] LABS: CREATININE 1.16 mg/dL (0.55-1.02); POTASSIUM 4.2 mmol/L (3.5-5.1)
[2018-01-10 09:56] LABS: FREE T4 1.34 ng/dl (0.76-1.46)
== END | disposition home or self-care (01) ==
LOC: LAB 08:35
PROVIDERS: Internal Medicine
DX: E03.9 Hypothyroidism, unspecified (principal); I10 Essential (primary) hypertension

== ENCOUNTER → 2018-01-24 | Outpatient (CLI) | payer OTHER | END | disposition home or self-care (01) | LOC: RESCLI 07:48 | DX: J44.9 Chronic obstructive pulmonary disease, unspecified (principal); R73.03 Prediabetes; K44.9 Diaphragmatic hernia without obstruction or gangrene; I25.2 Old myocardial infarction; E55.9 Vitamin D deficiency, unspecified; K21.9 Gastro-esophageal reflux disease without esophagitis; K58.9 Irritable bowel syndrome, unspecified; F41.9 Anxiety disorder, unspecified; F32.9 Major depressive disorder, single episode, unspecified; I10 Essential (primary) hypertension; E78.5 Hyperlipidemia, unspecified; E03.9 Hypothyroidism, unspecified; Z85.41 Personal history of malignant neoplasm of cervix uteri; Z86.711 Personal history of pulmonary embolism; Z72.0 Tobacco use; Z71.6 Tobacco abuse counseling; Z79.899 Other long term (current) drug therapy ==

== ENCOUNTER → 2018-04-11 | Outpatient (CLI) | payer MEDICARE, OTHER ==
[~2018-04-11] MED LIST changes: +LAMICTAL100 MG PO; -LAMICTAL25 MG PO; +OMEPRAZOLE20 M2 PO; -OMEPRAZOLE20 MG PO; +UNITHROID75 MCG PO; +VITAMIN D31000 UNI1 PO; +ZESTORETIC 10-1 EACH PO
== END | disposition home or self-care (01) ==
LOC: LAB 09:18
DX: E03.9 Hypothyroidism, unspecified (principal)

== ENCOUNTER → 2018-04-23 | Outpatient (CLI) | payer MEDICARE, OTHER | END | disposition home or self-care (01) | LOC: CARD 00:54 | DX: R53.81 Other malaise (principal); R07.9 Chest pain, unspecified; R06.02 Shortness of breath ==

== ENCOUNTER 2018-06-20 21:58 | Inpatient (IN) | payer MEDICARE ==
[~2018-06-20] VITALS: Ht 167.6 cm; Wt 76.2 kg
--- NOTE | ~2018-06-20 | EKG ---
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
[~2018-06-20 21:58] MED LIST changes: -LAMICTAL100 MG PO; +LAMICTAL200 MG PO
[2018-06-20 22:10] VITALS: BP 90/60
[2018-06-20 22:36] LABS: BASO % 0.4 % (0.0-1.0); EOS % 0.1 % (1.0-4.0); HEMATOCRIT 40.4 % (37.0-47.0); HEMOGLOBIN 13.9 g/dl (12.0-16.0); LYMPH # 1.5 10*3/uL (1.3-4.4); LYMPH % 16.2 % (27.0-41.0); MEAN CELL VOLUME 85.6 fl (81.0-99.0); MEAN CORPUSCULAR HGB 29.4 pg (27.0-31.0); MEAN CORPUSCULAR HGB CONC 34.4 g/dl (33.0-37.0); MEAN PLATELET VOLUME 9.3 fl (9.6-12.3); MONO # 0.6 10*3/uL (0.1-1.0); NEUT # 7.3 10*3/uL (2.3-7.9); NEUT % 77.1 % (47.0-73.0); PLATELET COUNT AUTOMATED 306 10*3/uL (130-400); RED BLOOD COUNT 4.72 10*6/uL (4.10-5.10); RED CELL DISTRI WIDTH 13.7 % (0-14.5); WHITE BLOOD COUNT 9.5 10*3/uL (4.8-10.8)
[2018-06-20 22:45] VITALS: BP 85/62
[2018-06-20 22:47] LABS: ACT PARTIAL THROMBO TIME 21.6 SECONDS (19.5-32.1)
[2018-06-20 22:52] LABS: ALBUMIN 3.4 gm/dl (3.1-4.5); ALKALINE PHOSPHATASE 98 U/L (45-117); BUN 15 mg/dl (7-24); CHLORIDE 101 mmol/L (98-107); CREATININE 1.42 mg/dL (0.55-1.02); POTASSIUM 3.6 mmol/L (3.5-5.1); SGOT/AST 168 IU/L (3-35); SGPT/ALT 161 U/L (12-78); SODIUM 130 mmol/L (136-145); TOTAL PROTEIN 6.8 gm/dL (6.4-8.2)
[2018-06-20 22:53] LABS: LIPASE 16712 U/L (73-393)
[2018-06-20 23:45] VITALS: BP 104/67
[2018-06-21] VITALS (12 sets, daily range): BP systolic 89–123; BP diastolic 50–83
[2018-06-21 01:18] LABS: BILIRUBIN NEGATIVE (NEGATIVE); BLOOD NEGATIVE (NEGATIVE); CLARITY CLEAR (CLEAR); COLOR YELLOW (YELLOW); GLUCOSE NEGATIVE (NEGATIVE); KETONE NEGATIVE (NEGATIVE); LEUKO ESTERASE NEGATIVE (NEGATIVE); NITRITE NEGATIVE (NEGATIVE); PH 6.5 (5.0-9.0); UROBILINOGEN 0.2 E.U./dl (0.2-1.0)
[2018-06-21 03:39] LABS: BASO % 0.4 % (0.0-1.0); EOS # 0.1 10*3/uL (0.0-0.4); EOS % 0.8 % (1.0-4.0); HEMATOCRIT 36.8 % (37.0-47.0); HEMOGLOBIN 12.3 g/dl (12.0-16.0); LYMPH # 1.8 10*3/uL (1.3-4.4); LYMPH % 25.2 % (27.0-41.0); MEAN CORPUSCULAR HGB 29.4 pg (27.0-31.0); MEAN CORPUSCULAR HGB CONC 33.4 g/dl (33.0-37.0); MEAN PLATELET VOLUME 9.3 fl (9.6-12.3); MONO # 0.4 10*3/uL (0.1-1.0); MONO % 5.8 % (3.0-9.0); NEUT # 4.8 10*3/uL (2.3-7.9); NEUT % 67.5 % (47.0-73.0); PLATELET COUNT AUTOMATED 240 10*3/uL (130-400); RED BLOOD COUNT 4.18 10*6/uL (4.10-5.10); WHITE BLOOD COUNT 7.1 10*3/uL (4.8-10.8)
[2018-06-21 03:56] LABS: ALBUMIN 2.9 gm/dl (3.1-4.5); CREATININE 1.16 mg/dL (0.55-1.02); PHOSPHOROUS 3.7 mg/dL (2.5-4.9); TOTAL PROTEIN 5.6 gm/dL (6.4-8.2)
[2018-06-21 04:03] LABS: FREE T4 1.14 ng/dl (0.76-1.46); THYROID STIM HORMONE (HS) 1.91 uIU/ml (0.358-4.75)
[2018-06-21 08:26] LABS: VITAMIN D, 25-HYDROXY 26.4 ng/mL (30-100)
[2018-06-22] VITALS: BP 93/70
[2018-06-22 08:00] VITALS: BP 102/68
[2018-06-22 08:12] LABS: BASO % 0.5 % (0.0-1.0); HEMATOCRIT 39.7 % (37.0-47.0); HEMOGLOBIN 12.9 g/dl (12.0-16.0); LYMPH # 1.9 10*3/uL (1.3-4.4); LYMPH % 34.1 % (27.0-41.0); MEAN CORPUSCULAR HGB 29.3 pg (27.0-31.0); MEAN CORPUSCULAR HGB CONC 32.5 g/dl (33.0-37.0); MEAN PLATELET VOLUME 9.3 fl (9.6-12.3); MONO # 0.4 10*3/uL (0.1-1.0); MONO % 7.4 % (3.0-9.0); NEUT # 3.2 10*3/uL (2.3-7.9); NEUT % 57.8 % (47.0-73.0); PLATELET COUNT AUTOMATED 242 10*3/uL (130-400); RED BLOOD COUNT 4.41 10*6/uL (4.10-5.10); WHITE BLOOD COUNT 5.6 10*3/uL (4.8-10.8)
[2018-06-22 08:22] LABS: BUN 11 mg/dl (7-24); CHLORIDE 109 mmol/L (98-107); CREATININE 1.06 mg/dL (0.55-1.02); LIPASE 98 U/L (73-393); POTASSIUM 4.9 mmol/L (3.5-5.1); SODIUM 142 mmol/L (136-145)
[2018-06-22] MEDS ORDERED: PERCOCET 5-3251 EACH PO (09:40)
[2018-06-22] MEDS ORDERED: ZOFRAN4 MG PO (09:40)
== END 2018-06-22 11:52 | disposition home or self-care (01) | DRG 438 ==
LOC: ED 21:58 → EDHOLD 06-21 00:54 → 4E 06-21 00:54
PROVIDERS: Internal Medicine; Nurse Practitioner Family
DX: K85.90 Acute pancreatitis without necrosis or infection, unspecified (principal); N17.0 Acute kidney failure with tubular necrosis; R65.11 Systemic inflammatory response syndrome (SIRS) of non-infectious origin with acute organ dysfunction; E87.1 Hypo-osmolality and hyponatremia; E87.2 Acidosis; E44.1 Mild protein-calorie malnutrition; D68.59 Other primary thrombophilia; I95.9 Hypotension, unspecified; K21.9 Gastro-esophageal reflux disease without esophagitis; K44.9 Diaphragmatic hernia without obstruction or gangrene; K58.1 Irritable bowel syndrome with constipation; K59.09 Other constipation; N18.3 Chronic kidney disease, stage 3 (moderate); R73.03 Prediabetes; I25.10 Atherosclerotic heart disease of native coronary artery without angina pectoris; E78.5 Hyperlipidemia, unspecified; K82.8 Other specified diseases of gallbladder; I12.9 Hypertensive chronic kidney disease with stage 1 through stage 4 chronic kidney disease, or unspecified chronic kidney disease; F17.210 Nicotine dependence, cigarettes, uncomplicated; J44.9 Chronic obstructive pulmonary disease, unspecified; F41.9 Anxiety disorder, unspecified; F32.9 Major depressive disorder, single episode, unspecified; E55.9 Vitamin D deficiency, unspecified; E66.3 Overweight; Z71.6 Tobacco abuse counseling; Z86.711 Personal history of pulmonary embolism; Z88.6 Allergy status to analgesic agent; Z85.41 Personal history of malignant neoplasm of cervix uteri; I25.2 Old myocardial infarction; Z90.710 Acquired absence of both cervix and uterus; Z82.49 Family history of ischemic heart disease and other diseases of the circulatory system; Z82.3 Family history of stroke; Z79.899 Other long term (current) drug therapy; Z79.01 Long term (current) use of anticoagulants; Z68.26 Body mass index [BMI] 26.0-26.9, adult

== ENCOUNTER 2018-06-26 21:51 | Inpatient (IN) | payer MEDICARE ==
[~2018-06-26] VITALS: Ht 167.6 cm; Wt 72.1 kg
--- NOTE | ~2018-06-26 | CON ---
[place], [place] REPORT OF CONSULTATION [id number] UNIT #: [id number] ROOM: 425 DOCTOR: THU OAKESLIAT BIRTHDATE: [birth year] DOS: 06/28/2018 GASTROENDOSCOPIC REPORT HISTORY OF PRESENT ILLNESS: The patient has presented with epigastric pain, abdominal pain. The patient is experiencing this condition postprandially. She had a CT scan of the abdomen, did not yield any pathology except largest sliding hiatal hernia. Troponin and cardiac workup was negative. H and H 13 and 40, differential normal. Repeat troponins with benign INR 1.0. Comprehensive metabolic panel, electrolyte and BUN and creatinine reviewed. Creatinine 1.4. Chemistry within normal limits. Lung scans were addressed. Blood cultures, no growth was noticed. PAST MEDICAL HISTORY: Associated with coronary artery disease, hypertension, COPD, depression, obesity, renal insufficiency, and nicotine dependency. PAST SURGICAL HISTORY: Bladder lift, hysterectomy for cancer. SOCIAL HISTORY: Smoker, nonalcohol consumer. FAMILY HISTORY: Noncontributory. ALLERGIES: VICODIN AND FOOD ALLERGIES ARE ALMONDS. MEDICATIONS: List has been reviewed. REVIEW OF SYSTEMS: HEENT: Denies double vision, blurred vision. RESPIRATORY: Admits some shortness of breath. CARDIOVASCULAR: Denies chest pain. DIGESTIVE SYSTEM: Epigastric pain, history of previous pancreatitis, history of abdominal pain, postprandial emesis. PHYSICAL EXAMINATION: VITAL SIGNS: Stable. HEENT: Head normocephalic, nontraumatic. Mouth and buccal mucosa benign. NECK: Supple, no thyromegaly, no cervical lymphadenopathy. CHEST: Symmetric anatomy, COPD pattern in general. No wheeze. No rhonchi. HEART: Normal sinus rhythm. No gallop, no murmur. ABDOMEN: Obese, soft. No hepato-organomegaly. Bowel sounds present. No pulsatile mass. EXTREMITIES: No cyanosis. No pedal edema. NEUROLOGIC: Alert, oriented to time, place, person. IMPRESSION: Epigastric pain, most likely secondary to sliding hiatal hernia. Other adjunctive diagnoses as outlined above. PLAN AND DISCUSSION: Endoscopy of upper GI tract is going to be undertaken. Otherwise, I am suspecting her pathology of epigastric distress and postprandial emesis could be secondary to her sliding hiatal hernia and ruling out distal [place], [place] REPORT OF CONSULTATION NAME: CHERI COFFEY UNIT #: [id number] ROOM: 425 DOCTOR: THU OAKES,LIAT BIRTHDATE: [birth year] esophageal ulceration as well. Thank you very much indeed. LIAT ANDINO MD CM:CONSTR:REPORT OF CONSULTATION 1052 06/28/18 2313 interface
--- NOTE | ~2018-06-26 | O ---
[place], [place] OPERATIVE NOTE NAME: CHERI COFFEY UNIT #: [id number] ROOM: 425 DOCTOR: THU OAKES,LIAT BIRTHDATE: [birth year] DOS: 06/28/2018 INDICATIONS: The patient has presented with nausea, epigastric distress, vomiting. PROCEDURE: Today's procedure part of investigation is panendoscopy plus biopsy. PREMEDICATION: Propofol. SCOPE: Olympus forward-viewing gastroscope Q10 video. REPORT: After putting the patient in left lateral position and application of lubricant to the scope, the scope was introduced. Thereafter, under direct visualization, advanced through the length of esophagus without difficulty. Distal esophageal ulceration was identified. Large sliding hiatal hernia approach. Gastric pouch was entered. Duodenal bulb, second and third part within normal limits. Antral biopsy obtained. The patient extubated, tolerated the procedure well. IMPRESSION: Distal esophageal ulcers secondary to reflux, large sliding hiatal hernia, which requires Jovany fundoplication repair when the patient is ready for that as outpatient. Otherwise Protonix 40 mg daily, antireflux measures with elevation of the head of the bed 10 inches all time. Gaviscon as antacid of choice 1 at bedtime and clinical reassessment. Follow up in GI Clinic. Thank you very much indeed. LIAT ANDINO MD CM:OPRECORD:OPERATIVE NOTE 1123 1225 LIAT ANDINO MD 06/28/18 1223 interface
--- NOTE | ~2018-06-26 | EKG ---
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
[~2018-06-26 21:51] MED LIST changes: +PERCOCET 5-3251 EACH PO; +ZOFRAN4 MG PO
[2018-06-26 21:52] VITALS: BP 107/64
[2018-06-26 22:23] LABS: BASO % 0.4 % (0.0-1.0); EOS % 0.2 % (1.0-4.0); HEMATOCRIT 41.9 % (37.0-47.0); HEMOGLOBIN 14.1 g/dl (12.0-16.0); LYMPH # 1.6 10*3/uL (1.3-4.4); LYMPH % 14.3 % (27.0-41.0); MEAN CORPUSCULAR HGB 29.6 pg (27.0-31.0); MEAN CORPUSCULAR HGB CONC 33.7 g/dl (33.0-37.0); MEAN PLATELET VOLUME 9.6 fl (9.6-12.3); MONO # 0.6 10*3/uL (0.1-1.0); MONO % 5.3 % (3.0-9.0); NEUT # 8.6 10*3/uL (2.3-7.9); NEUT % 79.4 % (47.0-73.0); PLATELET COUNT AUTOMATED 329 10*3/uL (130-400); RED BLOOD COUNT 4.76 10*6/uL (4.10-5.10); RED CELL DISTRI WIDTH 14.2 % (0-14.5); WHITE BLOOD COUNT 10.9 10*3/uL (4.8-10.8)
[2018-06-26 22:33] LABS: ACT PARTIAL THROMBO TIME 23.9 SECONDS (20.8-31.5)
[2018-06-26 22:41] LABS: ALBUMIN 3.8 gm/dl (3.1-4.5); ALKALINE PHOSPHATASE 99 U/L (45-117); BUN 18 mg/dl (7-24); CHLORIDE 98 mmol/L (98-107); CREATININE 1.44 mg/dL (0.55-1.02); LIPASE 103 U/L (73-393); SGOT/AST 85 IU/L (3-35); SGPT/ALT 82 U/L (12-78); SODIUM 132 mmol/L (136-145); TOTAL PROTEIN 7.3 gm/dL (6.4-8.2)
[2018-06-26 22:44] LABS: TROPONIN I < 0.015 ng/ml (<0.045)
[2018-06-27] VITALS (15 sets, daily range): BP systolic 81–110; BP diastolic 50–72
[2018-06-27 04:06] LABS: BASO % 0.3 % (0.0-1.0); HEMATOCRIT 40.4 % (37.0-47.0); HEMOGLOBIN 13.1 g/dl (12.0-16.0); LYMPH # 1.4 10*3/uL (1.3-4.4); LYMPH % 18.9 % (27.0-41.0); MEAN CELL VOLUME 90.4 fl (81.0-99.0); MEAN CORPUSCULAR HGB 29.3 pg (27.0-31.0); MEAN CORPUSCULAR HGB CONC 32.4 g/dl (33.0-37.0); MEAN PLATELET VOLUME 9.3 fl (9.6-12.3); MONO # 0.4 10*3/uL (0.1-1.0); MONO % 4.8 % (3.0-9.0); NEUT # 5.7 10*3/uL (2.3-7.9); NEUT % 75.7 % (47.0-73.0); PLATELET COUNT AUTOMATED 270 10*3/uL (130-400); RED BLOOD COUNT 4.47 10*6/uL (4.10-5.10); RED CELL DISTRI WIDTH 14.2 % (0-14.5); WHITE BLOOD COUNT 7.5 10*3/uL (4.8-10.8)
[2018-06-27 04:31] LABS: ALBUMIN 3.4 gm/dl (3.1-4.5); CREATININE 1.48 mg/dL (0.55-1.02); PHOSPHOROUS 3.6 mg/dL (2.5-4.9); TOTAL PROTEIN 6.6 gm/dL (6.4-8.2)
[2018-06-27 06:13] LABS: BILIRUBIN NEGATIVE (NEGATIVE); BLOOD NEGATIVE (NEGATIVE); CLARITY CLEAR (CLEAR); COLOR YELLOW (YELLOW); GLUCOSE NEGATIVE (NEGATIVE); KETONE NEGATIVE (NEGATIVE); LEUKO ESTERASE NEGATIVE (NEGATIVE); NITRITE NEGATIVE (NEGATIVE); UROBILINOGEN 0.2 E.U./dl (0.2-1.0)
[2018-06-27 06:33] LABS: BACTERIA 1+
[2018-06-28] VITALS (8 sets, daily range): BP systolic 95–126; BP diastolic 41–85
[2018-06-28 07:02] LABS: BUN 12 mg/dl (7-24); CHLORIDE 106 mmol/L (98-107); CREATININE 1.09 mg/dL (0.55-1.02); LIPASE 61 U/L (73-393); POTASSIUM 4.1 mmol/L (3.5-5.1); SODIUM 136 mmol/L (136-145)
[2018-06-29] VITALS: BP 109/54
[2018-06-29 07:04] LABS: BUN 9 mg/dl (7-24); CHLORIDE 109 mmol/L (98-107); CREATININE 0.88 mg/dL (0.55-1.02); SODIUM 141 mmol/L (136-145)
[2018-06-29 08:40] VITALS: BP 118/70
[2018-06-29] MEDS ORDERED: GAVISCON ES TA1 EACH PO (10:15)
[2018-06-29] MEDS ORDERED: PROTONIX TR40 M1 PO (10:15)
[2018-06-29] MEDS ORDERED: TYLENOL EXTRA500 M2 PO (10:17)
== END 2018-06-29 11:25 | disposition home or self-care (01) | DRG 314 ==
LOC: ED 21:51 → EDHOLD 23:42 → ICCU 23:42 → 4E 06-27 14:19
PROVIDERS: Family Medicine; Student in an Organized Health Care Education/Training Program
PROC: 0DB68ZX Excision of Stomach, Via Natural or Artificial Opening Endoscopic, Diagnostic (ICD-10-PCS; principal; 2018-06-28)
DX: I95.9 Hypotension, unspecified (principal); N17.0 Acute kidney failure with tubular necrosis; E87.1 Hypo-osmolality and hyponatremia; K22.10 Ulcer of esophagus without bleeding; K29.70 Gastritis, unspecified, without bleeding; K21.9 Gastro-esophageal reflux disease without esophagitis; E78.5 Hyperlipidemia, unspecified; D72.829 Elevated white blood cell count, unspecified; J44.9 Chronic obstructive pulmonary disease, unspecified; E66.3 Overweight; I25.10 Atherosclerotic heart disease of native coronary artery without angina pectoris; N18.3 Chronic kidney disease, stage 3 (moderate); K44.9 Diaphragmatic hernia without obstruction or gangrene; I12.9 Hypertensive chronic kidney disease with stage 1 through stage 4 chronic kidney disease, or unspecified chronic kidney disease; F17.210 Nicotine dependence, cigarettes, uncomplicated; K59.09 Other constipation; Z88.6 Allergy status to analgesic agent; Z88.8 Allergy status to other drugs, medicaments and biological substances; Z90.710 Acquired absence of both cervix and uterus; Z71.6 Tobacco abuse counseling; Z79.899 Other long term (current) drug therapy

== ENCOUNTER 2018-07-06 16:29 | Inpatient (IN) | payer MEDICARE ==
[~2018-07-06] VITALS: Ht 167.6 cm; Wt 72.6 kg
--- NOTE | ~2018-07-06 | WRIGHTHP ---
[place], [place] PATIENT HISTORY AND PHYSICAL EXAM NAME: CHERI COFFEY [facility] #: [id number] UNIT #: [id number] ROOM: 419 DOCTOR: GILBERT KILLIAN MD BIRTHDATE: [birth year] DOS: 07/06/2018 HISTORY OF PRESENT ILLNESS: 1. The patient is a 63-year-old female with a past medical history of cholelithiasis, choledocholithiasis and 2 episodes of acute pancreatitis. 2. Large hiatal hernia with 30 pounds of weight loss in the last 2 months. 3. History of cervical cancer. 4. Chronic constipation. 5. Chronic kidney disease, stage 3A. 6. COPD. 7. Depression. 8. GERD and esophagitis. 9. Hyperlipidemia. 10. Hypertension. 11. Prediabetic. 12. History of pulmonary embolism and anticoagulation with Eliquis in 2017. 13. Nicotine smoke dependence 120 pack years plus. 14. History of urinary bladder surgery and hysterectomy. The patient was presently admitted to [facility] with severe abdominal pain, nausea, vomiting and being unable to tolerate any food. The patient was found to have acute pancreatitis, which has gradually subsided now. Acute pancreatitis appears to be related to gallbladder stones causing choledocholithiasis and patient has had 2 episodes of acute pancreatitis. The patient's abdominal pains have improved and she just has some dull aching sensation in her abdomen, but she is not able to tolerate a regular diet. The patient remains on a clear liquid diet. SYSTEMS REVIEW: GASTROINTESTINAL: Recurrent nausea, vomiting, diarrhea and 30-pound weight loss. RESPIRATORY: No increasing shortness of breath or wheezing. History of nicotine smoke dependence. CARDIOVASCULAR SYSTEM: History of coronary artery disease. FAMILY HISTORY: Noncontributory. HOME MEDICATIONS: Levothyroxine, lisinopril, Protonix, apixaban, lamotrigine. PHYSICAL EXAMINATION: GENERAL: Alert and oriented x 3, in no visible distress. Generalized weakness. HEENT AND NECK: Extraocular movements are intact. Sclerae are anicteric. Oral mucosa is moist and clean. No obvious facial weakness. Neck is supple without any lymphadenopathy. No thyromegaly. No JVD. No carotid arterial bruits. LUNGS: Clear to auscultation. No wheezing. No rhonchi. CARDIOVASCULAR SYSTEM: Heart rate is regular in rate and rhythm. S1 and S2 normally audible. No significant murmur or any other abnormal cardiac sounds. ABDOMEN: Soft, nontender. No obvious organomegaly. Bowel sounds are present. No obvious herniation. EXTREMITIES: Without significant cyanosis or edema. Warm to touch. [place], [place] PATIENT HISTORY AND PHYSICAL EXAM NAME: CHERI COFFEY UNIT #: [id number] ROOM: 419 DOCTOR: GILBERT KILLIAN MD BIRTHDATE: [birth year] CENTRAL NERVOUS SYSTEM: Alert and oriented x 3. Cranial nerves II-XII are intact. Speech is normal. The patient is able to move all extremities. Normal muscle strength. Deep tendon reflexes are equal on both sides. Plantars were downgoing. IMPRESSION: 1. The patient with severe weight loss of 30 pounds, probably over the last 2 months as per patient related to large hiatal hernia, accompanied by 2 episodes of acute pancreatitis and the patient is unable to tolerate regular diet. At present time, she has been started on clear liquid diet and she is eating minimally. I made a call to [facility] and I am trying to get her to be transferred to thoracic surgery at [facility] for further evaluation and corrective surgery. 2. Acute pancreatitis, gallstones and recurrent choledocholithiasis for which the patient requires cholecystectomy. 3. Chronic kidney disease, stage 3A. 4. The patient is a prediabetic. Blood sugars are staying normal, probably improved with significant weight loss. 5. History of deep venous thrombosis and pulmonary embolism. The patient remains on Eliquis. 6. Nicotine smoke dependence. The patient encouraged to stop smoking cigarettes and bad effect of cigarette smoke on her health were explained to her. 7. Coronary artery disease of the [place] vessels without chest pains. 8. Centrilobular emphysema, treated with bronchodilators as needed. 9. Mixed hyperlipidemia, to be followed and treated. 10. Benign essential hypertension. Blood pressure to be monitored and treated. GILBERT KILLIAN MD CM:HISPHYS:PATIENT HISTORY AND PHYSICAL EXAMINATION 02 00 GILBERT KILLIAN MD 07/07/181958 interface
[~2018-07-06 16:29] MED LIST changes: +GAVISCON ES TA1 EACH PO; +PROTONIX TR40 M1 PO; +TYLENOL EXTRA500 M2 PO
[2018-07-06 16:56] LABS: BASO % 0.2 % (0.0-1.0); EOS % 0.2 % (1.0-4.0); HEMATOCRIT 42.4 % (37.0-47.0); HEMOGLOBIN 14.6 g/dl (12.0-16.0); LYMPH # 0.9 10*3/uL (1.3-4.4); LYMPH % 7.1 % (27.0-41.0); MEAN CELL VOLUME 87.4 fl (81.0-99.0); MEAN CORPUSCULAR HGB 30.1 pg (27.0-31.0); MEAN CORPUSCULAR HGB CONC 34.4 g/dl (33.0-37.0); MEAN PLATELET VOLUME 9.2 fl (9.6-12.3); MONO # 0.5 10*3/uL (0.1-1.0); MONO % 4.2 % (3.0-9.0); NEUT # 10.8 10*3/uL (2.3-7.9); NEUT % 87.8 % (47.0-73.0); PLATELET COUNT AUTOMATED 398 10*3/uL (130-400); RED BLOOD COUNT 4.85 10*6/uL (4.10-5.10); RED CELL DISTRI WIDTH 13.8 % (0-14.5); WHITE BLOOD COUNT 12.3 10*3/uL (4.8-10.8)
[2018-07-06 17:14] LABS: ALBUMIN 3.6 gm/dl (3.1-4.5); CREATININE 1.74 mg/dL (0.55-1.02); POTASSIUM 3.9 mmol/L (3.5-5.1); TOTAL PROTEIN 7.7 gm/dL (6.4-8.2)
--- NOTE | 2018-07-06 17:18 | NUR ---
AMYLASE 646... CRITICAL LAB RESULT REPORTED TO DR ALY AT THIS TIME
--- NOTE | 2018-07-06 17:19 | NUR ---
PATIENT REQUESTED SOME WATER; GIVEN ICE CHIPS AND SMALL AMOUNT OF WATER
--- NOTE | 2018-07-06 17:19 | NUR ---
IV CONTINUES TO INFUSE WITHOUT INFILTRATE
[2018-07-06 17:30] VITALS: BP 100/68
[2018-07-06 18:00] VITALS: BP 100/66
--- NOTE | 2018-07-06 18:20 | NUR ---
patient to ultrasound
--- NOTE | 2018-07-06 18:31 | NUR ---
PATIENT RETURNS FROM CT...
[2018-07-06 19:03] VITALS: BP 104/60
--- NOTE | 2018-07-06 19:32 | NUR ---
NURSE TO NURSE REPORT GIVEN TO ALEXEI RN AT BEDSIDE.
--- NOTE | 2018-07-06 19:42 | NUR ---
A 63, admitted to , under the services of ELIZABETH Kinney DO with a diagnosis of PANCREATITIS. Chief complaint is RECENT ADMISSION X 2 FOR ABD PAIN. STATES UNABLE TO MOVE BOWELS OR EAT SINCE BEFORE JOSH. GENERALIZED WEAKNESS. Patient arrived via bed from ER. Monitor applied. Initial assessment completed. Vital signs taken and recorded. ELIZABETH KINNEY DO notified of admission to the unit. Orders received. See assessment for past medical history, medications and allergies. Patient and/or family oriented to unit. [facility] visitation policy reviewed. Clothing/patient valuable form completed. ALEXEI JANG
[2018-07-06 19:50] VITALS: BP 105/66
[2018-07-06] MEDS ORDERED: GAVISCON ES TA1 EACH PO (19:56)
--- NOTE | 2018-07-06 21:00 | NUR ---
RESTING IN BED. RESPIRATIONS EASY. LUNGS DIMINISHED, CLEAR. PULSE OX 95% RA. ABDF SOFT WITH FAINT HYPOACTIVE BOWEL SOUNDS, CLAIMS LAST BM 06/29. PATIENT DESCRIBES UPPER ABD PAIN THROBBING IN NATURE AND STATES DEMEROL RECEIVED IN ER HELPED. IV FLUIDS INFUSING PER ORDER. CALL LIGHT WITHIN REACH. DAUGHTER PRESENT AT BEDSIDE
--- NOTE | 2018-07-06 23:00 | NUR ---
SLEEPING, SNORING. RESPIRATIONS EASY. LUNGS DIMINISHED, CLEAR. PULSE O X97% RA. FAINT HYPOACTIVE BOWEL SOUNDS. CONTINUES TO DECLINE TEDS. IV FLUIDS INFUSING PER ORDER. CALL LIGHT WITHIN REACH.
[2018-07-07] VITALS: BP 117/64; BP 150/60
--- NOTE | 2018-07-07 01:10 | NUR ---
UPON AWAKENING, C/O UPPER ABD PAIN RATING A 6 - MEDICATED WITH DILAUDID IV PER PRN ORDER. ALSO MEDICATED WITH PHENERGAN PER PRN ORDER TO ASSIST WITH NAUSEA. CALL LIGHT WITHIN REACH. WILL MONITOR FOR EFFECTIVENESS
--- NOTE | 2018-07-07 03:00 | NUR ---
EARLIER MEDS APPEAR EFFECTIVE. SLEEPING. RESPIRATIONS EASY. IV FLUIDS MAINTAINED
[2018-07-07 04:00] VITALS: BP 98/62
--- NOTE | 2018-07-07 05:44 | NUR ---
MEDICATED WITH DILAUDID PER PRN ORDER FOR COMPLAINTS OF UPPER ABD PAIN RATING A 3. DENIES NAUSEA AT PRESENT. CALL LIGHT WITHIN REACH. WILL MONITOR FOR EFFECTIVENESS
[2018-07-07 06:40] LABS: BASO % 0.2 % (0.0-1.0); EOS % 0.3 % (1.0-4.0); HEMATOCRIT 39.1 % (37.0-47.0); LYMPH # 1.7 10*3/uL (1.3-4.4); LYMPH % 18.9 % (27.0-41.0); MEAN CORPUSCULAR HGB 29.1 pg (27.0-31.0); MEAN PLATELET VOLUME 9.4 fl (9.6-12.3); MONO # 0.6 10*3/uL (0.1-1.0); MONO % 7.3 % (3.0-9.0); NEUT # 6.4 10*3/uL (2.3-7.9); PLATELET COUNT AUTOMATED 320 10*3/uL (130-400); WHITE BLOOD COUNT 8.8 10*3/uL (4.8-10.8)
[2018-07-07 06:41] LABS: HEMOGLOBIN 12.5 g/dl (12.0-16.0); MEAN CELL VOLUME 90.9 fl (81.0-99.0)
[2018-07-07 06:50] LABS: ALBUMIN 3.1 gm/dl (3.1-4.5); CREATININE 1.21 mg/dL (0.55-1.02); PHOSPHOROUS 3.9 mg/dL (2.5-4.9); TOTAL PROTEIN 6.1 gm/dL (6.4-8.2)
--- NOTE | 2018-07-07 07:00 | NUR ---
EARLIER DILAUDID APPEARS EFFECTIVE. PATIENT SLEEPING UPON BEDSIDE REPORT. IV FLUIDS MAINTAINED. CALL LIGHT WITHIN REACHG
[2018-07-07 08:00] VITALS: BP 96/64
--- NOTE | 2018-07-07 08:00 | NUR ---
C/O NAUSEA. PHENERGAN GIVEN AT THIS TIME. WILL CONT TO MONITOR. CALL LIGHT IN REACH.
--- NOTE | 2018-07-07 09:00 | NUR ---
PHYSICIAN WAS NOTIFIED OF DR. ANDINO CONSULT. RESPONSE OF NOTIFICATION WAS CLEAR LIQUID DIET, FLEETS ENEMA, BMP AND LIPASE TOMORROW.. MINDA DE LA GARZA
--- NOTE | 2018-07-07 11:34 | NUR ---
FLEETS INEFF AT THIS TIME. WILL CONT TO MONITOR.
[2018-07-07 12:00] VITALS: BP 94/53
--- NOTE | 2018-07-07 14:58 | NUR ---
DAUGHTER GINGER CAME TO THIS NURSE REQUESTING SERVICES BE TRANSFERRED FROM [facility] DR WOODWARD TO DR KILLIAN. DR NOLAN AND DR WOODWARD MADE AWARE. DR KILLIAN AWARE.
[2018-07-07 16:00] VITALS: BP 117/74
--- NOTE | 2018-07-07 19:00 | NUR ---
DR KILLIAN PRESENT ON FLOOR. ARRANGING TRANSFER
--- NOTE | 2018-07-07 19:50 | NUR ---
24 HR chart check completed.
[2018-07-07 20:00] VITALS: BP 116/70
--- NOTE | 2018-07-07 20:16 | NUR ---
REQUESTED AND RECEIVED DILAUDID PER PRN ORDER FOR COMPLAINTS OF UPPER ABD PAIN RATING A 4. ALSO MEDICATED WITH PHENERGAN FOR NAUSEA. IV FLUIDS MAINTAINED. CALL LIGHT WITHIN REACH. WILL MONITOR FOR EFFECTIVENESS
--- NOTE | 2018-07-07 20:40 | NUR ---
Discharge instructions reviewed with patient/family. Patient receptive and verbalizes understanding. TRANSFER arranged. Written instructions SENT WITH to patient. DAUGHTER AWARE OF TRANSFER PLAN AND AGREEABLE. ALEXEI JANG
--- NOTE | 2018-07-07 20:40 | NUR ---
STATES RELIEF FROM EARLIER PAIN MEDS, NOW RATES PAIN A 1. DENIES NAUSEA AT PRESENT. [facility] HERE FOR TRANSPORT. PATIENT AND BELONINGS LOADED ON TO [facility]. PATIENT ALERT AND ORIENTED. NO FURTHER VOICED COMPLAINTS
--- NOTE | 2018-07-07 20:55 | NUR ---
ATTEMPTED TO CALL REPORT TO [facility]. ON HOLD FOR 10 MINS. NURSE TO CALL BACK WHEN AVAILABLE
--- NOTE | 2018-07-07 21:20 | NUR ---
FRAN FROM [facility] CALLED, REPORTED GIVEN.
== END 2018-07-07 20:40 | disposition short-term general hospital (02) | DRG 438 ==
LOC: ED 16:29 → EDHOLD 18:49 → 4E 18:49
PROVIDERS: Emergency Medicine; Student in an Organized Health Care Education/Training Program; ADMIT Internal Medicine
DX: K85.90 Acute pancreatitis without necrosis or infection, unspecified (principal); N17.0 Acute kidney failure with tubular necrosis; R65.11 Systemic inflammatory response syndrome (SIRS) of non-infectious origin with acute organ dysfunction; I50.32 Chronic diastolic (congestive) heart failure; E87.1 Hypo-osmolality and hyponatremia; I13.2 Hypertensive heart and chronic kidney disease with heart failure and with stage 5 chronic kidney disease, or end stage renal disease; K80.20 Calculus of gallbladder without cholecystitis without obstruction; K86.1 Other chronic pancreatitis; R73.03 Prediabetes; I25.10 Atherosclerotic heart disease of native coronary artery without angina pectoris; N18.3 Chronic kidney disease, stage 3 (moderate); F32.9 Major depressive disorder, single episode, unspecified; K21.9 Gastro-esophageal reflux disease without esophagitis; E78.5 Hyperlipidemia, unspecified; K44.9 Diaphragmatic hernia without obstruction or gangrene; K59.00 Constipation, unspecified; J43.2 Centrilobular emphysema; F17.210 Nicotine dependence, cigarettes, uncomplicated; Z86.711 Personal history of pulmonary embolism; Z71.6 Tobacco abuse counseling; Z90.710 Acquired absence of both cervix and uterus; Z82.49 Family history of ischemic heart disease and other diseases of the circulatory system; Z82.3 Family history of stroke; Z88.9 Allergy status to unspecified drugs, medicaments and biological substances; Z86.718 Personal history of other venous thrombosis and embolism

== ENCOUNTER → 2018-07-18 | Outpatient (CLI) | payer MEDICARE | END | disposition home or self-care (01) | LOC: RESCLI 03:00 | DX: I25.2 Old myocardial infarction (principal); K44.9 Diaphragmatic hernia without obstruction or gangrene; E55.9 Vitamin D deficiency, unspecified; K21.9 Gastro-esophageal reflux disease without esophagitis; K58.9 Irritable bowel syndrome, unspecified; F41.9 Anxiety disorder, unspecified; F32.9 Major depressive disorder, single episode, unspecified; I10 Essential (primary) hypertension; J44.9 Chronic obstructive pulmonary disease, unspecified; E78.5 Hyperlipidemia, unspecified; E03.9 Hypothyroidism, unspecified; I21.4 Non-ST elevation (NSTEMI) myocardial infarction; F17.210 Nicotine dependence, cigarettes, uncomplicated; Z71.6 Tobacco abuse counseling; Z79.899 Other long term (current) drug therapy; Z85.41 Personal history of malignant neoplasm of cervix uteri; Z88.8 Allergy status to other drugs, medicaments and biological substances ==

== ENCOUNTER 2018-07-23 19:04 | Emergency (ER) | payer MEDICARE ==
[~2018-07-23] VITALS: Ht 167.6 cm; Wt 69.9 kg
--- NOTE | ~2018-07-23 | EKG ---
[place], [place] ELECTROCARDIOGRAM REPORT NAME: CHERI COFFEY UNIT #: [id number] ROOM: DOCTOR: EPIPHANY DRAFT REPORT BIRTHDATE: [birth year] [facility] Test Date: 2018-07-23 Test Time: 19:24:51 Pat Name: CHERI COFFEY Department: ER Room: Gender: F Supervisor Press Room: EKG.[place] : 1955 Requested By: RAMAKRISHNA MARTE Order Number: [id number] Reading MD: Gerald Milligan MD Measurements Intervals [place] Rate: 82 P: 61 [place]: 158 QRS: 8 QRSD: 91 T: 45 QT: 377 QTc: 441 Interpretive Statements Sinus rhythm Probable left atrial enlargement RSR' in V1 or V2, right VCD or RVH Compared to ECG 06/26/2018 22:13:05 Right ventricular hypertrophy now present RSR' in V1 or V2 now present Electronically Signed On 07-24-2018 9:38:25 PST by Gerald Milligan MD CM:EKGRPT:ELECTROCARDIOGRAM REPORT [id number] RAMAKRISHNA BA DRAFT REPORT RAMAKRISHNA MARTE DO
[2018-07-23 19:31] LABS: BASO % 0.3 % (0.0-1.0); EOS % 0.2 % (1.0-4.0); HEMATOCRIT 42.2 % (37.0-47.0); LYMPH # 2.1 10*3/uL (1.3-4.4); MEAN CELL VOLUME 90.8 fl (81.0-99.0); MEAN CORPUSCULAR HGB 30.1 pg (27.0-31.0); MEAN CORPUSCULAR HGB CONC 33.2 g/dl (33.0-37.0); MEAN PLATELET VOLUME 9.3 fl (9.6-12.3); MONO # 0.6 10*3/uL (0.1-1.0); MONO % 6.5 % (3.0-9.0); NEUT # 6.3 10*3/uL (2.3-7.9); NEUT % 69.8 % (47.0-73.0); PLATELET COUNT AUTOMATED 431 10*3/uL (130-400); RED BLOOD COUNT 4.65 10*6/uL (4.10-5.10); RED CELL DISTRI WIDTH 14.4 % (0-14.5)
[2018-07-23 19:48] LABS: ALBUMIN 3.8 gm/dl (3.1-4.5); ALKALINE PHOSPHATASE 204 U/L (45-117); BUN 9 mg/dl (7-24); CHLORIDE 102 mmol/L (98-107); POTASSIUM 3.5 mmol/L (3.5-5.1); SGOT/AST 154 IU/L (3-35); SGPT/ALT 230 U/L (12-78); SODIUM 137 mmol/L (136-145); TOTAL PROTEIN 7.5 gm/dL (6.4-8.2)
[2018-07-23 19:49] LABS: LIPASE 1733 U/L (73-393); TROPONIN I < 0.015 ng/ml (<0.045)
== END 2018-07-24 02:12 | disposition short-term general hospital (02) ==
LOC: ED 19:04
PROVIDERS: Student in an Organized Health Care Education/Training Program
DX: K85.90 Acute pancreatitis without necrosis or infection, unspecified (principal); I13.0 Hypertensive heart and chronic kidney disease with heart failure and stage 1 through stage 4 chronic kidney disease, or unspecified chronic kidney disease; N18.3 Chronic kidney disease, stage 3 (moderate); I25.10 Atherosclerotic heart disease of native coronary artery without angina pectoris; K21.9 Gastro-esophageal reflux disease without esophagitis; J44.9 Chronic obstructive pulmonary disease, unspecified; E78.5 Hyperlipidemia, unspecified; F17.200 Nicotine dependence, unspecified, uncomplicated; Z88.6 Allergy status to analgesic agent; Z91.018 Allergy to other foods; Z79.899 Other long term (current) drug therapy; Z98.890 Other specified postprocedural states

== ENCOUNTER → 2020-09-30 | Outpatient (CLI) | payer OTHER | END | disposition home or self-care (01) | LOC: RESCLI 08:16 | PROVIDERS: ATTEND Internal Medicine Nephrology | DX: E55.9 Vitamin D deficiency, unspecified (principal); I26.99 Other pulmonary embolism without acute cor pulmonale; F32.9 Major depressive disorder, single episode, unspecified; E03.9 Hypothyroidism, unspecified; I10 Essential (primary) hypertension; M54.31 Sciatica, right side; F17.200 Nicotine dependence, unspecified, uncomplicated; Z79.899 Other long term (current) drug therapy; Z71.6 Tobacco abuse counseling; Z88.8 Allergy status to other drugs, medicaments and biological substances ==

== ENCOUNTER → 2020-10-06 | Outpatient (CLI) | payer OTHER ==
[2020-10-06 10:14] LABS: BASO # 0.1 10*3/uL (0.0-0.1); BASO % 0.9 % (0.0-1.0); EOS # 0.2 10*3/uL (0.0-0.4); EOS % 2.3 % (1.0-4.0); HEMATOCRIT 47.8 % (37.0-47.0); LYMPH # 1.8 10*3/uL (1.3-4.4); LYMPH % 25.4 % (27.0-41.0); MEAN CELL VOLUME 93.7 fl (81.0-99.0); MEAN CORPUSCULAR HGB 31.2 pg (27.0-31.0); MEAN CORPUSCULAR HGB CONC 33.3 g/dl (33.0-37.0); MEAN PLATELET VOLUME 9.3 fl (9.6-12.3); MONO # 0.5 10*3/uL (0.1-1.0); MONO % 7.8 % (3.0-9.0); NEUT # 4.4 10*3/uL (2.3-7.9); NEUT % 63.2 % (47.0-73.0); PLATELET COUNT AUTOMATED 241 10*3/uL (130-400); RED CELL DISTRI WIDTH 13.1 % (0-14.5); WHITE BLOOD COUNT 6.9 10*3/uL (4.8-10.8)
[2020-10-06 10:42] LABS: ALBUMIN 3.8 gm/dl (3.1-4.5); ALKALINE PHOSPHATASE 77 U/L (45-117); BUN 18 mg/dl (7-24); CHLORIDE 105 mmol/L (98-107); CREATININE 0.94 mg/dL (0.55-1.02); POTASSIUM 4.6 mmol/L (3.5-5.1); SGOT/AST 17 IU/L (3-35); SGPT/ALT 36 U/L (12-78); SODIUM 138 mmol/L (136-145); TOTAL PROTEIN 7.1 gm/dL (6.4-8.2)
[2020-10-06 11:01] LABS: FREE T4 1.31 ng/dl (0.76-1.46)
[2020-10-06 11:05] LABS: VITAMIN D, 25-HYDROXY 21.3 ng/mL (30-100)
== END | disposition home or self-care (01) ==
LOC: LAB 08:59 → MAMMO 09:30
PROVIDERS: Internal Medicine; ATTEND Emergency Medicine
DX: Z12.31 Encounter for screening mammogram for malignant neoplasm of breast (principal); M54.31 Sciatica, right side; E55.9 Vitamin D deficiency, unspecified; E03.9 Hypothyroidism, unspecified; N63.21 Unspecified lump in the left breast, upper outer quadrant; N63.11 Unspecified lump in the right breast, upper outer quadrant; Z79.899 Other long term (current) drug therapy

== ENCOUNTER 2020-12-01 15:39 | Emergency (ER) | payer OTHER ==
[~2020-12-01] VITALS: Ht 167.6 cm; Wt 71.7 kg
[2020-12-01] MEDS ORDERED: CEPHALEXIN500 M1 PO (17:49)
== END 2020-12-01 18:11 | disposition home or self-care (01) ==
LOC: ED 15:39
DX: S91.332A Puncture wound without foreign body, left foot, initial encounter (principal); F17.200 Nicotine dependence, unspecified, uncomplicated; Z90.710 Acquired absence of both cervix and uterus; Z98.890 Other specified postprocedural states; Z79.899 Other long term (current) drug therapy; Z88.6 Allergy status to analgesic agent; Z88.5 Allergy status to narcotic agent; W22.8XXA Striking against or struck by other objects, initial encounter; Y93.89 Activity, other specified; Y92.89 Other specified places as the place of occurrence of the external cause; Y99.9 Unspecified external cause status

== ENCOUNTER → 2020-12-13 | Outpatient (CLI) | payer OTHER ==
[~2020-12-13] MED LIST changes: +CEPHALEXIN500 M1 PO
== END | disposition home or self-care (01) ==
LOC: RESCLI 01:46
PROVIDERS: ATTEND Internal Medicine Nephrology
DX: E03.9 Hypothyroidism, unspecified (principal); M54.31 Sciatica, right side; F32.9 Major depressive disorder, single episode, unspecified; E55.9 Vitamin D deficiency, unspecified; K21.9 Gastro-esophageal reflux disease without esophagitis; J44.9 Chronic obstructive pulmonary disease, unspecified; Z86.711 Personal history of pulmonary embolism; Z90.710 Acquired absence of both cervix and uterus; Z88.8 Allergy status to other drugs, medicaments and biological substances; Z79.899 Other long term (current) drug therapy

== ENCOUNTER → 2021-09-30 | Outpatient (CLI) | payer OTHER | END | disposition home or self-care (01) | LOC: RESCLI 01:30 | PROVIDERS: ATTEND Internal Medicine | DX: F32.9 Major depressive disorder, single episode, unspecified (principal); I25.2 Old myocardial infarction; E55.9 Vitamin D deficiency, unspecified; K21.9 Gastro-esophageal reflux disease without esophagitis; I10 Essential (primary) hypertension; E78.5 Hyperlipidemia, unspecified; E03.9 Hypothyroidism, unspecified; M54.31 Sciatica, right side; Z12.31 Encounter for screening mammogram for malignant neoplasm of breast; Z13.820 Encounter for screening for osteoporosis; Z12.2 Encounter for screening for malignant neoplasm of respiratory organs; Z86.711 Personal history of pulmonary embolism; Z87.891 Personal history of nicotine dependence; Z88.8 Allergy status to other drugs, medicaments and biological substances; Z90.710 Acquired absence of both cervix and uterus; Z79.899 Other long term (current) drug therapy; Z79.01 Long term (current) use of anticoagulants; Z79.4 Long term (current) use of insulin ==

== ENCOUNTER → 2021-11-24 | Outpatient (CLI) | payer OTHER | END | disposition home or self-care (01) | LOC: RESCLI 08:27 | PROVIDERS: ATTEND Internal Medicine | DX: I25.2 Old myocardial infarction (principal); I11.9 Hypertensive heart disease without heart failure; K21.9 Gastro-esophageal reflux disease without esophagitis; E78.5 Hyperlipidemia, unspecified; E03.9 Hypothyroidism, unspecified; I20.8 Other forms of angina pectoris; I25.10 Atherosclerotic heart disease of native coronary artery without angina pectoris; F32.9 Major depressive disorder, single episode, unspecified; M54.31 Sciatica, right side; E55.9 Vitamin D deficiency, unspecified; J44.9 Chronic obstructive pulmonary disease, unspecified; Z79.899 Other long term (current) drug therapy; R94.31 Abnormal electrocardiogram [ECG] [EKG] ==

== ENCOUNTER → 2022-02-14 | Outpatient (CLI) | payer OTHER | END | disposition home or self-care (01) | LOC: RESCLI 08:21 | PROVIDERS: ATTEND Internal Medicine | DX: I11.9 Hypertensive heart disease without heart failure (principal); I25.10 Atherosclerotic heart disease of native coronary artery without angina pectoris; E78.5 Hyperlipidemia, unspecified; E03.9 Hypothyroidism, unspecified; F32.9 Major depressive disorder, single episode, unspecified; F41.9 Anxiety disorder, unspecified; K21.9 Gastro-esophageal reflux disease without esophagitis; Z88.8 Allergy status to other drugs, medicaments and biological substances; Z79.899 Other long term (current) drug therapy; Z87.891 Personal history of nicotine dependence; Z79.82 Long term (current) use of aspirin ==

== ENCOUNTER 2022-11-07 19:08 | Emergency (ER) | payer OTHER ==
[~2022-11-07] VITALS: Ht 162.5 cm; Wt 74.8 kg
[~2022-11-07 19:08] MED LIST changes: -PRISTIQ100 MG PO
[2022-11-07 19:47] LABS: LYMPH % 33.6 % (27.0-41.0)
[2022-11-07 19:51] LABS: BASO % 0.6 % (0.0-1.0); EOS % 0.2 % (1.0-4.0); HEMATOCRIT 48.6 % (37.0-47.0); LYMPH # 2.1 10*3/uL (1.3-4.4); MEAN CELL VOLUME 93.5 fl (81.0-99.0); MEAN CORPUSCULAR HGB CONC 33.1 g/dl (33.0-37.0); MEAN PLATELET VOLUME 9.3 fl (9.6-12.3); MONO # 0.5 10*3/uL (0.1-1.0); MONO % 7.2 % (3.0-9.0); NEUT # 3.6 10*3/uL (2.3-7.9); NEUT % 58.2 % (47.0-73.0); PLATELET COUNT AUTOMATED 229 10*3/uL (130-400); RED CELL DISTRI WIDTH 13.9 % (0-14.5); WHITE BLOOD COUNT 6.2 10*3/uL (4.8-10.8)
[2022-11-07 20:04] LABS: ALKALINE PHOSPHATASE 74 U/L (46-116); BUN 11 mg/dl (9-23); CHLORIDE 106 mmol/L (98-107); SGPT/ALT 25 U/L (10-49); TOTAL PROTEIN 6.8 gm/dL (6.0-8.0)
[2022-11-07] MEDS ORDERED: PRISTIQ100 MG PO (20:48)
[2022-11-10 20:07] LABS: APTT 24.8 sec (22.9-30.2)
== END 2022-11-07 22:08 | disposition home or self-care (01) ==
LOC: ED 19:08
PROVIDERS: Student in an Organized Health Care Education/Training Program
DX: R42 Dizziness and giddiness (principal); Z88.8 Allergy status to other drugs, medicaments and biological substances; Z91.018 Allergy to other foods; Z79.899 Other long term (current) drug therapy; Z90.710 Acquired absence of both cervix and uterus; Z87.891 Personal history of nicotine dependence

== ENCOUNTER → 2022-11-07 | Outpatient (CLI) | payer OTHER ==
[~2022-11-07] MED LIST changes: +PRISTIQ100 MG PO
[2022-11-07 09:35] LABS: BASO % 0.7 % (0.0-1.0); EOS # 0.1 10*3/uL (0.0-0.4); EOS % 0.9 % (1.0-4.0); HEMATOCRIT 51.5 % (37.0-47.0); LYMPH # 1.7 10*3/uL (1.3-4.4); LYMPH % 30.8 % (27.0-41.0); MEAN CELL VOLUME 94.5 fl (81.0-99.0); MEAN CORPUSCULAR HGB 31.2 pg (27.0-31.0); MONO # 0.4 10*3/uL (0.1-1.0); MONO % 6.7 % (3.0-9.0); NEUT # 3.3 10*3/uL (2.3-7.9); NEUT % 60.7 % (47.0-73.0); PLATELET COUNT AUTOMATED 243 10*3/uL (130-400); RED BLOOD COUNT 5.45 10*6/uL (4.10-5.10); RED CELL DISTRI WIDTH 14.1 % (0-14.5); WHITE BLOOD COUNT 5.4 10*3/uL (4.8-10.8)
[2022-11-07 10:20] LABS: ALKALINE PHOSPHATASE 80 U/L (46-116); BUN 9 mg/dl (9-23); CHLORIDE 106 mmol/L (98-107); CHOLESTEROL 228 mg/dL (<200); LDL CHOLESTEROL 146 mg/dL (9-159); POTASSIUM 4.5 mmol/L (3.4-5.1); SGPT/ALT 24 U/L (10-49); TRIGLYCERIDES 90 mg/dl (<150)
== END | disposition home or self-care (01) ==
LOC: RESCLI 00:57
PROVIDERS: Internal Medicine; ATTEND Student in an Organized Health Care Education/Training Program
DX: J44.9 Chronic obstructive pulmonary disease, unspecified (principal); E03.9 Hypothyroidism, unspecified; I25.10 Atherosclerotic heart disease of native coronary artery without angina pectoris; F32.9 Major depressive disorder, single episode, unspecified; E78.5 Hyperlipidemia, unspecified; I25.2 Old myocardial infarction; M54.31 Sciatica, right side; I10 Essential (primary) hypertension; R42 Dizziness and giddiness; R21 Rash and other nonspecific skin eruption; Z86.711 Personal history of pulmonary embolism; Z98.890 Other specified postprocedural states; Z88.5 Allergy status to narcotic agent; Z79.899 Other long term (current) drug therapy

== ENCOUNTER → 2022-12-12 | Outpatient (CLI) | payer OTHER ==
[~2022-12-12] MED LIST changes: +PRISTIQ100 MG PO
== END | disposition home or self-care (01) ==
LOC: RESCLI 02:49
PROVIDERS: ATTEND Internal Medicine
DX: Z23 Encounter for immunization (principal); Z13.9 Encounter for screening, unspecified; F32.A Depression, unspecified; F41.9 Anxiety disorder, unspecified; J44.9 Chronic obstructive pulmonary disease, unspecified; E03.9 Hypothyroidism, unspecified; I25.10 Atherosclerotic heart disease of native coronary artery without angina pectoris; E78.5 Hyperlipidemia, unspecified; E55.9 Vitamin D deficiency, unspecified; I25.2 Old myocardial infarction; K21.9 Gastro-esophageal reflux disease without esophagitis; I12.9 Hypertensive chronic kidney disease with stage 1 through stage 4 chronic kidney disease, or unspecified chronic kidney disease; N18.30 Chronic kidney disease, stage 3 unspecified; Z87.891 Personal history of nicotine dependence; Z85.41 Personal history of malignant neoplasm of cervix uteri; Z86.711 Personal history of pulmonary embolism; Z79.899 Other long term (current) drug therapy

== ENCOUNTER → 2023-03-05 | Outpatient (CLI) | payer OTHER ==
[~2023-03-05] MED LIST changes: +CEFTRIAXON1 GM/50 ML IV; +CLOPIDOGREL75 MG PO; +LEVOTHYROXINE75 MC1 PO; +LIPITOR20 MG PO; +Lopressor25 MG PO; +NATURE'S BLEND100 M2 PO; +NIGHTTIME SLEEP PO; +PREMIERPRO RX100 M1 IV; +XARE20MG PO; +[UNRECOGNIZED DRUG - REMARK] PO
== END ==
LOC: RESCLI 14:46
PROVIDERS: ATTEND Student in an Organized Health Care Education/Training Program
DX: I63.9 Cerebral infarction, unspecified (principal); I12.9 Hypertensive chronic kidney disease with stage 1 through stage 4 chronic kidney disease, or unspecified chronic kidney disease; J44.9 Chronic obstructive pulmonary disease, unspecified; N18.30 Chronic kidney disease, stage 3 unspecified; K21.9 Gastro-esophageal reflux disease without esophagitis; K52.9 Noninfective gastroenteritis and colitis, unspecified; G47.00 Insomnia, unspecified; F32.9 Major depressive disorder, single episode, unspecified; I25.10 Atherosclerotic heart disease of native coronary artery without angina pectoris; I25.2 Old myocardial infarction; E03.9 Hypothyroidism, unspecified; E78.5 Hyperlipidemia, unspecified; Z86.711 Personal history of pulmonary embolism; Z88.8 Allergy status to other drugs, medicaments and biological substances; Z79.82 Long term (current) use of aspirin; Z79.899 Other long term (current) drug therapy

== ENCOUNTER 2023-09-13 16:36 | Emergency (ER) | payer OTHER ==
[~2023-09-13] VITALS: Ht 167.6 cm; Wt 77.1 kg
[2023-09-13] MEDS ORDERED: ACETAMINOPHEN 325 MG TAB PO ONE (18:50)
== END 2023-09-13 21:15 | disposition home or self-care (01) ==
LOC: ED 16:36
DX: S82.62XA Displaced fracture of lateral malleolus of left fibula, initial encounter for closed fracture (principal); S92.002A Unspecified fracture of left calcaneus, initial encounter for closed fracture; J44.9 Chronic obstructive pulmonary disease, unspecified; R73.9 Hyperglycemia, unspecified; E83.51 Hypocalcemia; E87.8 Other disorders of electrolyte and fluid balance, not elsewhere classified; E83.42 Hypomagnesemia; I25.10 Atherosclerotic heart disease of native coronary artery without angina pectoris; I50.9 Heart failure, unspecified; K21.9 Gastro-esophageal reflux disease without esophagitis; I13.0 Hypertensive heart and chronic kidney disease with heart failure and stage 1 through stage 4 chronic kidney disease, or unspecified chronic kidney disease; N18.30 Chronic kidney disease, stage 3 unspecified; I25.2 Old myocardial infarction; E78.5 Hyperlipidemia, unspecified; Z88.6 Allergy status to analgesic agent; Z88.5 Allergy status to narcotic agent; Z91.018 Allergy to other foods; Z90.49 Acquired absence of other specified parts of digestive tract; Z90.710 Acquired absence of both cervix and uterus; Z98.890 Other specified postprocedural states; F17.200 Nicotine dependence, unspecified, uncomplicated; W01.0XXA Fall on same level from slipping, tripping and stumbling without subsequent striking against object, initial encounter; Y93.89 Activity, other specified; Y92.89 Other specified places as the place of occurrence of the external cause; Y99.8 Other external cause status

== ENCOUNTER → 2024-02-04 | Outpatient (CLI) | payer OTHER ==
[2024-02-04 17:42] LABS: BASO % 0.4 % (0.0-1.0); LYMPH % 27.1 % (27.0-41.0); MEAN CELL VOLUME 87.4 fl (81.0-99.0); MEAN CORPUSCULAR HGB 29.7 pg (27.0-31.0); MEAN PLATELET VOLUME 9.5 fl (9.6-12.3); MONO # 0.6 10*3/uL (0.1-1.0); MONO % 8.1 % (3.0-9.0); NEUT # 4.8 10*3/uL (2.3-7.9); NEUT % 64.1 % (47.0-73.0); PLATELET COUNT AUTOMATED 220 10*3/uL (130-400); RED BLOOD COUNT 4.92 10*6/uL (4.10-5.10); RED CELL DISTRI WIDTH 14.5 % (0-14.5); WHITE BLOOD COUNT 7.4 10*3/uL (4.8-10.8)
[2024-02-04 18:13] LABS: POTASSIUM 3.7 mmol/L (3.4-5.1); TOTAL PROTEIN 6.6 gm/dL (6.0-8.0)
[2024-02-04 18:14] LABS: VITAMIN D, 25-HYDROXY 97.4 ng/mL (30-100)
== END | disposition home or self-care (01) ==
LOC: RESCLI 00:59
PROVIDERS: Student in an Organized Health Care Education/Training Program; ATTEND Student in an Organized Health Care Education/Training Program
DX: R07.9 Chest pain, unspecified (principal); J44.9 Chronic obstructive pulmonary disease, unspecified; I10 Essential (primary) hypertension; F41.9 Anxiety disorder, unspecified; K21.9 Gastro-esophageal reflux disease without esophagitis; E78.5 Hyperlipidemia, unspecified; E03.9 Hypothyroidism, unspecified; F32.9 Major depressive disorder, single episode, unspecified; I25.10 Atherosclerotic heart disease of native coronary artery without angina pectoris; G47.00 Insomnia, unspecified; Z98.890 Other specified postprocedural states; Z86.711 Personal history of pulmonary embolism; Z88.5 Allergy status to narcotic agent; Z79.899 Other long term (current) drug therapy

== ENCOUNTER → 2024-03-03 | Outpatient (CLI) | payer OTHER ==
[2024-03-03 14:49] LABS: BUN 17 mg/dl (9-23); CHLORIDE 104 mmol/L (98-107); POTASSIUM 3.9 mmol/L (3.4-5.1)
== END | disposition home or self-care (01) ==
LOC: RESCLI 00:29
PROVIDERS: Student in an Organized Health Care Education/Training Program; ATTEND Family Medicine
DX: I25.10 Atherosclerotic heart disease of native coronary artery without angina pectoris (principal); J44.9 Chronic obstructive pulmonary disease, unspecified; F32.9 Major depressive disorder, single episode, unspecified; E78.5 Hyperlipidemia, unspecified; E03.9 Hypothyroidism, unspecified; K21.9 Gastro-esophageal reflux disease without esophagitis; F41.9 Anxiety disorder, unspecified; G47.00 Insomnia, unspecified; E55.9 Vitamin D deficiency, unspecified; N18.30 Chronic kidney disease, stage 3 unspecified; Z72.0 Tobacco use; Z86.711 Personal history of pulmonary embolism; Z13.29 Encounter for screening for other suspected endocrine disorder; Z13.820 Encounter for screening for osteoporosis; Z98.890 Other specified postprocedural states; Z88.5 Allergy status to narcotic agent; Z90.710 Acquired absence of both cervix and uterus; Z79.01 Long term (current) use of anticoagulants; Z79.82 Long term (current) use of aspirin; Z79.899 Other long term (current) drug therapy

== ENCOUNTER → 2024-07-21 | Outpatient (CLI) | payer MEDICARE ==
[2024-07-21 15:28] LABS: BASO % 0.6 % (0.0-1.0); HEMATOCRIT 49.2 % (37.0-47.0); MEAN CELL VOLUME 91.3 fl (81.0-99.0); MEAN CORPUSCULAR HGB 29.3 pg (27.0-31.0); MEAN CORPUSCULAR HGB CONC 32.1 g/dl (33.0-37.0); MEAN PLATELET VOLUME 9.2 fl (9.6-12.3); MONO # 0.6 10*3/uL (0.1-1.0); NEUT # 4.7 10*3/uL (2.3-7.9); NEUT % 67.9 % (47.0-73.0); PLATELET COUNT AUTOMATED 278 10*3/uL (130-400); RED BLOOD COUNT 5.39 10*6/uL (4.10-5.10); RED CELL DISTRI WIDTH 13.3 % (0-14.5); WHITE BLOOD COUNT 6.9 10*3/uL (4.8-10.8)
[2024-07-21 15:58] LABS: FREE T4 1.45 ng/dl (0.89-1.76); POTASSIUM 4.6 mmol/L (3.4-5.1)
== END | disposition home or self-care (01) ==
LOC: PULMREHAB 01:56 → RESCLI 01:56 → LAB 01:56 → RESCLI 04:20
PROVIDERS: Student in an Organized Health Care Education/Training Program; ATTEND Family Medicine
DX: Z12.2 Encounter for screening for malignant neoplasm of respiratory organs (principal); Z13.820 Encounter for screening for osteoporosis; Z13.29 Encounter for screening for other suspected endocrine disorder; R06.02 Shortness of breath; J44.9 Chronic obstructive pulmonary disease, unspecified; E03.9 Hypothyroidism, unspecified; E78.5 Hyperlipidemia, unspecified; I25.10 Atherosclerotic heart disease of native coronary artery without angina pectoris; Z79.899 Other long term (current) drug therapy

== ENCOUNTER → 2024-09-03 | Outpatient (CLI) | payer MEDICARE | LOC: MAMMO 08-14 09:00 | PROVIDERS: ATTEND Internal Medicine | DX: Z12.31 Encounter for screening mammogram for malignant neoplasm of breast (principal); N64.89 Other specified disorders of breast; R92.1 Mammographic calcification found on diagnostic imaging of breast ==

== ENCOUNTER → 2024-10-16 | Outpatient (CLI) | payer MEDICARE | END | disposition home or self-care (01) | LOC: RESCLI 01:25 | PROVIDERS: ATTEND Internal Medicine | DX: R21 Rash and other nonspecific skin eruption (principal); K04.7 Periapical abscess without sinus; E55.9 Vitamin D deficiency, unspecified; F41.9 Anxiety disorder, unspecified; E03.9 Hypothyroidism, unspecified; E78.5 Hyperlipidemia, unspecified; I25.10 Atherosclerotic heart disease of native coronary artery without angina pectoris; I12.9 Hypertensive chronic kidney disease with stage 1 through stage 4 chronic kidney disease, or unspecified chronic kidney disease; N18.30 Chronic kidney disease, stage 3 unspecified; J44.9 Chronic obstructive pulmonary disease, unspecified; F32.9 Major depressive disorder, single episode, unspecified; K21.9 Gastro-esophageal reflux disease without esophagitis; I25.2 Old myocardial infarction; G47.00 Insomnia, unspecified; F17.210 Nicotine dependence, cigarettes, uncomplicated; Z88.5 Allergy status to narcotic agent; Z88.8 Allergy status to other drugs, medicaments and biological substances; Z98.890 Other specified postprocedural states; Z90.710 Acquired absence of both cervix and uterus ==

== ENCOUNTER → 2025-01-16 | Outpatient (CLI) | payer MEDICARE ==
[2025-01-16 16:01] LABS: BASO # 0.0 10*3/uL (0.0-0.1); BASO % 0.6 % (0.0-1.0); EOS # 0.0 10*3/uL (0.0-0.4); EOS % 0.0 % (1.0-4.0); MEAN CELL VOLUME 90.6 fl (81.0-99.0); MEAN CORPUSCULAR HGB 29.5 pg (27.0-31.0); MEAN PLATELET VOLUME 9.1 fl (9.6-12.3); MONO # 0.5 10*3/uL (0.1-1.0); MONO % 6.9 % (3.0-9.0); NEUT # 4.5 10*3/uL (2.3-7.9); NEUT % 62.8 % (47.0-73.0); NUCLEATED RED BLOOD CELL 0.0 % (0.0-0.0); NUCLEATED RED BLOOD CELL 0.0 10*3/uL (0.0-0.0); PLATELET COUNT AUTOMATED 241 10*3/uL (130-400); RED CELL DISTRI WIDTH 13.2 % (0-14.5)
[2025-01-16 16:24] LABS: BUN 13.0 mg/dl (9-23); LDL CHOLESTEROL 128.0 mg/dL (9-159); SGPT/ALT 57.0 U/L (5-49)
[2025-01-16 16:25] LABS: VITAMIN D, 25-HYDROXY 83.7 ng/mL (30-100)
== END | disposition home or self-care (01) ==
LOC: RESCLI 04:58 → LAB 05:04
PROVIDERS: Student in an Organized Health Care Education/Training Program; ATTEND Internal Medicine
DX: I10 Essential (primary) hypertension (principal); E78.5 Hyperlipidemia, unspecified; E55.9 Vitamin D deficiency, unspecified; E03.9 Hypothyroidism, unspecified; Z85.41 Personal history of malignant neoplasm of cervix uteri; Z79.899 Other long term (current) drug therapy